=== PATIENT | female | born 1995 | race Caucasian/White ===

== ENCOUNTER 2017-07-06 20:09 | Emergency (ER) | payer MEDICAID ==
[2017-07-06 20:10] VITALS: BMI 26.4
[2017-07-06 20:30] VITALS: BP 113/74; PULSE 97; RESP 20; TEMP 98.9; O2SAT 100
--- NOTE | 2017-07-06 21:30 | C.PDOC ---
History Of Present Illness 22 y/o female presents to ED with complaints of sore throat and pain above front tooth for 1 day. Patient states she took ibuprofen last night and face swelled up but now not as swollen and is unclear if associated with nsaid use which she has used before with no problem but reports swelling to face with use of pcn. No other complaints at this time. Time Seen by Provider: 07/06/17 20:45 Chief Complaint (Nursing): Flu-like Symptoms History Per: Patient History/Exam Limitations: no limitations Onset/Duration Of Symptoms: Days Current Symptoms Are (Timing): Still Present Past Medical History Reviewed: Historical Data, Nursing Documentation, Vital Signs Vital Signs: Last Vital Signs Temp 98.9 F 07/06/17 20:27 Pulse 97 H 07/06/17 20:27 Resp 20 07/06/17 22:19 BP 113/74 07/06/17 20:27 Pulse Ox 100 07/06/17 21:41 - Medical History PMH: Asthma Surgical History: No Surg Hx, Tonsillectomy - [facility] Procedures DELIVERY OF PRODUCTS OF CONCEPTION, EXTERNAL APPROACH (12/06/15) REPAIR PERINEUM MUSCLE, OPEN APPROACH (12/06/15) Family History: States: No Known Family Hx - Social History Hx Tobacco Use: No Hx Alcohol Use: No Hx Substance Use: No - Immunization History Hx Tetanus Toxoid Vaccination: No Hx Influenza Vaccination: No Hx Pneumococcal Vaccination: No Review Of Systems Constitutional: Negative for: Fever, Chills ENT: Positive for: Mouth Pain (tooth), Throat Swelling Cardiovascular: Negative for: Chest Pain Respiratory: Negative for: Shortness of Breath Gastrointestinal: Negative for: Nausea, Vomiting Skin: Negative for: Rash Physical Exam - Physical Exam Additional Physical Exam Comments: Constitutional: No acute distress. WDWN. Head: Normocephalic. Atraumatic. Eyes: PERRL. EOMI. ENT: Moist mucous membranes. Throat- Erythema to Pharynx Neck: Supple. Cardiovascular: Regular rate and rhythm. Chest: No tenderness. Respiratory: Clear to auscultation bilaterally. GI: Soft. Nontender. Nondistended. Normoactive bowel sounds. No rebound. No guarding. Back: No CVA and no mid-line tenderness. Musculoskeletal: No tenderness or swelling of extremities. Skin: No rash. Neurologic: Alert, no focal deficit. ED Course And Treatment O2 Sat by Pulse Oximetry: 100 (RA) Pulse Ox Interpretation: Normal Medical Decision Making Medical Decision Makin22 y/o female c/o sore throat and pain above front tooth x 1 day, sts she took ibuprofen last night and her face swelled up, now not as swollen. unclear if associated with nsaid use (pt has used before with no problem, but reports swelling to face with use of pcn). pt has mild erythema to pharynx, s/p tonsillectomy years ago) with 0,5 mm tender swelling at gumline of left upper front tooth, will d/c with antibiotic and dentist tomorrow. Disposition Counseled Patient/Family Regarding: Diagnosis, Need For Followup, Rx Given - Disposition Referrals: Melissa Kinney APN [Non-Staff] - Disposition: HOME/ ROUTINE Disposition Time: 21:30 Condition: STABLE Additional Instructions: Gargle with warm salty water several times a day. take antibiotics as prescribed. Tylneol for pain and follow up with dentist tomorrow. Follow up wihth PMD in 2-3 days. Avoid nsaids (motrin, ibuprofen, aleve) until determined if you have allergy to them. Prescriptions: Clindamycin [Cleocin] 300 mg PO QID #28 cap Instructions: Dental Abscess (ED) Forms: Gen Discharge Inst Trinidadian, [employer] (Trinidadian) Print Language: KAZAKH - Clinical Impression Clinical Impression: Dental abscess - PA / DENTAL CERAMIST ASSISTANT / Resident Statement MD/DO has reviewed & agrees with the documentation as recorded. - Scribe Statement The provider has reviewed the documentation as recorded by the Charmaine Quick All medical record entries made by the Charmaine were at my direction and personally dictated by me. I have reviewed the chart and agree that the record accurately reflects my personal performance of the history, physical exam, medical decision making, and the department course for this patient. I have also personally directed, reviewed, and agree with the discharge instructions and disposition.
== END 2017-07-06 22:19 | disposition home or self-care (01) ==
LOC: C.ER 20:09
DX: K04.7 Periapical abscess without sinus (principal)

== ENCOUNTER 2017-08-22 04:30 | Emergency (ER) | payer MEDICAID ==
[2017-08-22 04:30] VITALS: BMI 26.4
[2017-08-22 04:46] VITALS: RESP 20
--- NOTE | 2017-08-22 04:59 | C.PDOC ---
History Of Present Illness 22F c/o swelling in her upper lip and face since yesterday. contrary to triage she denies any pain. she reports same sx in the past which improved with antibiotics. Time Seen by Provider: 08/22/17 04:51 Chief Complaint (Nursing): Dental Pain Past Medical History Vital Signs: Last Vital Signs Temp 98.2 F 08/22/17 04:43 Pulse 96 H 08/22/17 04:43 Resp 20 08/22/17 04:43 BP 114/72 08/22/17 04:43 Pulse Ox 99 08/22/17 05:11 - Medical History PMH: Asthma Surgical History: Tonsillectomy - [facility] Procedures DELIVERY OF PRODUCTS OF CONCEPTION, EXTERNAL APPROACH (12/06/15) REPAIR PERINEUM MUSCLE, OPEN APPROACH (12/06/15) Family History: States: Other Other Family History: nc - Social History Hx Tobacco Use: No Hx Alcohol Use: No Hx Substance Use: No - Immunization History Hx Tetanus Toxoid Vaccination: No Hx Influenza Vaccination: No Hx Pneumococcal Vaccination: No Review Of Systems Constitutional: Negative for: Fever, Weakness, Malaise Cardiovascular: Negative for: Chest Pain Respiratory: Negative for: Shortness of Breath Gastrointestinal: Negative for: Nausea, Vomiting Physical Exam - Physical Exam Appears: Well, Non-toxic, No Acute Distress Skin: Warm, Dry, Other (there is mild edema of the upper lip and maxillary region) Eye(s): bilateral: PERRL, EOMI Nose: No Epistaxis Oral Mucosa: Moist Tongue: No Swelling, No Lesions, No Erythema Lips: Swelling Gingiva: No Erythema, No Swelling, No Abscess Throat: No Erythema, No Exudate, No Drooling, No Mass, Other (uvula non- edematous and midline) Neck: Normal ROM, Supple Cardiovascular: Rhythm Regular Respiratory: No Accessory Muscle Use Neurological/Psych: Oriented x3 ED Course And Treatment O2 Sat by Pulse Oximetry: 99 Disposition - Disposition Referrals: Tyrone Kinney MD [Medical Doctor] - Disposition: HOME/ ROUTINE Disposition Time: 05:09 Condition: STABLE Additional Instructions: Please follow up with your doctor. Return to the ER for any worsening symptoms or for any other concerns. Prescriptions: Clindamycin [Cleocin] 300 mg PO QID #28 cap Instructions: Cellulitis (ED) Forms: [employer] ([place]), Gen Discharge Inst Russian Print Language: TANZANIAN - Clinical Impression Clinical Impression: Facial cellulitis
[2017-08-22 05:34] VITALS: BP 118/70; PULSE 87; TEMP 97.6; O2SAT 98
== END 2017-08-22 05:34 | disposition home or self-care (01) ==
LOC: C.ER 04:30
DX: L03.211 Cellulitis of face (principal)

== ENCOUNTER 2018-08-01 13:05 | Emergency (ER) | payer MEDICAID ==
[2018-08-01 13:06] VITALS: BMI 26.4
[2018-08-01 13:23] VITALS: O2SAT 100
[2018-08-01] MEDS ORDERED: Sodium Chloride 0.9% 1,000 ML IV ONE (13:35)
[2018-08-01 13:51] LABS: HCG,QUALITATIVE URINE POSITIVE (NEGATIVE)
[2018-08-01] MEDS ORDERED: Sodium Chloride 0.9% 1,000 ML ONE (13:52)
[2018-08-01 14:01] LABS: BASO % 0.1 % (0.0-2.0); EOS % 0.1 % (0.0-4.0); HEMOGLOBIN 12.3 g/dL (11.0-16.0); LYMPH % 6.2 % (20.0-40.0); MEAN CORPUSCULAR HEMOGLOBIN 25.7 pg (27.0-31.0); MEAN PLATELET VOLUME 7.7 fL (7.2-11.7); MONO # 1.2 K/uL (0.0-0.8); MONO % 7.2 % (0.0-10.0); NEUT # 14.3 K/uL (1.8-7.0); NEUT % 86.4 % (50.0-75.0); NRBC % 0.1 % (0.0-2.0); PLATELET COUNT 361 K/uL (130-400); RED CELL DISTRIBUTION WIDTH 17.9 % (11.5-14.5); WHITE BLOOD COUNT 16.6 K/uL (4.8-10.8)
[2018-08-01 14:03] LABS: MEAN CELL VOLUME 75.5 fL (81.0-99.0)
[2018-08-01 14:23] LABS: SQUAMOUS EPITHIAL 11 /hpf (0-5); URINE AMORPHOUS SEDIMENT RARE /ul (<OCC); URINE BACTERIA RARE (<OCC); URINE BILIRUBIN NEGATIVE (NEGATIVE); URINE CLARITY Hazy (Clear); URINE COLOR Yellow (YELLOW); URINE GLUCOSE (UA) NORMAL (Normal); URINE LEUKOCYTE ESTERASE 3+ Leu/uL (Negative); URINE PROTEIN NEGATIVE (NEGATIVE); URINE UROBILINOGEN NORMAL mg/dL (0.2-1.0)
[2018-08-01 14:24] LABS: URINE BLOOD 2+ (NEGATIVE)
[2018-08-01 14:24] LABS: ALB/GLOB RATIO 1.2 (1.0-2.1); ALBUMIN 4.2 g/dL (3.5-5.0); BLOOD UREA NITROGEN 3 mg/dL (7-17); CALCIUM 9.1 mg/dl (8.6-10.4); GFR NON-AFRICAN AMERICAN > 60
[2018-08-01 14:29] LABS: ALT/SGPT 30 U/L (9-52); AST/SGOT 31 U/L (14-36)
[2018-08-01 14:42] LABS: BANDS 1 % (0-2); LYMPHOCYTE 5 % (20-40); MONOCYTE 10 % (0-10); NEUTROPHIL 84 % (50-75); TOTAL CELLS COUNTED 100
[2018-08-01 14:43] LABS: ANISOCYTOSIS SLIGHT; PLATELET ESTIMATE NORMAL (NORMAL)
[2018-08-01 15:41] VITALS: RESP 17
--- NOTE | 2018-08-01 15:52 | US ---
Date of service: 08/01/2018 PROCEDURE: OB Pelvic Ultrasound HISTORY: pelvic pain, 8 wks, no prior LMP: 06/13/2018 COMPARISON: None available. FINDINGS: UTERUS: Gestational sac: Single intrauterine gestation. Measures 2.7 cm compatible with estimated gestational age of 7 weeks, 3 days Yolk sac: Measures 0.2 cm pole: [place]-rump length measures 1.1 cm compatible with estimated gestational age of 7 weeks, 2 days Heart rate: 152 bpm. age (Ultrasound estimated): 7 weeks, 3 days [place]-gestational hemorrhage: Trace subchorionic hemorrhage. Date of delivery (Ultrasound estimated) : 03/17/2019 Uterus measures 10.6 x 6.0 x 7.2 cm. Anteverted, CERVIX: Measures 3.2 cm. Long and closed. No cervical abnormality seen. RIGHT OVARY: Measures 3.6 x 2.2 x 3.2 cm. No mass lesion. Normal flow. LEFT OVARY: Measures 2.9 x 1.7 x 2.6 cm. No solid mass. Normal flow. FREE FLUID: None. OTHER FINDINGS: None. IMPRESSION: Single live intrauterine gestation with average ultrasound age of 7 weeks, 3 days. heart rate 152 beats per minute. Trace subchorionic hemorrhage. Cervix long and closed.
--- NOTE | 2018-08-01 15:57 | C.PDOC ---
History Of Present Illness 23 year old female presents to the ED for evaluation of vomiting with , which usually occurs in the morning. Patient also reports pelvic pain, to her left adnexal area. She has not undergone any prior ultrasounds. Patient denies fever, chills, or changes in bowel habits. Patient is . Time Seen by Provider: 08/01/18 13:31 Chief Complaint (Nursing): GI Problem History Per: Patient History/Exam Limitations: no limitations Onset/Duration Of Symptoms: Days Current Symptoms Are (Timing): Still Present Additional History Per: Patient Past Medical History Reviewed: Historical Data, Nursing Documentation, Vital Signs Vital Signs: Last Vital Signs Temp 99.4 F 08/01/18 15:40 Pulse 86 08/01/18 15:40 Resp 17 08/01/18 15:40 BP 97/64 L 08/01/18 15:40 Pulse Ox 100 08/01/18 15:40 - Medical History PMH: Asthma Surgical History: Tonsillectomy - [facility] Procedures DELIVERY OF PRODUCTS OF CONCEPTION, EXTERNAL APPROACH (12/06/15) REPAIR PERINEUM MUSCLE, OPEN APPROACH (12/06/15) Family History: States: Unknown Family Hx - Social History Hx Tobacco Use: No Hx Alcohol Use: No Hx Substance Use: No - Immunization History Hx Tetanus Toxoid Vaccination: No Hx Influenza Vaccination: No Hx Pneumococcal Vaccination: No Review Of Systems Gastrointestinal: Positive for: Vomiting Genitourinary: Positive for: Pelvic Pain, Other (left adnexal pain ) Physical Exam - Physical Exam Appears: Non-toxic, No Acute Distress Skin: Normal Color, Warm, Dry Head: Atraumatic, Normacephalic Eye(s): bilateral: Normal Inspection Oral Mucosa: Moist Neck: Supple Chest: Symmetrical, No Deformity, No Tenderness Cardiovascular: Rhythm Regular, No Murmur Respiratory: Normal Breath Sounds, No Rales, No Rhonchi, No Wheezing Gastrointestinal/Abdominal: Other (left adnexal tenderness ) Extremity: Normal ROM, Capillary Refill (less than 2 seconds ) Neurological/Psych: Other (bizarre affect ) ED Course And Treatment - Laboratory Results Result Diagrams: 08/01/18 13:50 08/01/18 13:50 O2 Sat by Pulse Oximetry: 100 (on RA) Pulse Ox Interpretation: Normal Progress Note: Bloodwork, urinalysis, Ultrasound ordered and reviewed. Pepcid IVP, Zofran IVP, Tylenol PO and IV Fluids given. Medical Decision Making Medical Decision Making: mild fever no vag d/c clear lungs normal ENT son with similar fever/body aches suspect viral syndrome in defer abx for now as no likely source Disposition Doctor Will See Patient In The: Office Counseled Patient/Family Regarding: Studies Performed, Diagnosis - Disposition Disposition: HOME/ ROUTINE Disposition Time: 16:08 Condition: GOOD Forms: [facility] (Luxembourgish) - Clinical Impression Clinical Impression: Hyperemesis gravidarum, Viral syndrome - Scribe Statement The provider has reviewed the documentation as recorded by the Scribe (Ekaterina Morse) Provider Attestation: All medical record entries made by the Scribe were at my direction and personally dictated by me. I have reviewed the chart and agree that the record a ccurately reflects my personal performance of the history, physical exam, medical decision making, and the department course for this patient. I have also personally directed, reviewed, and agree with the discharge instructions and disposition.
[2018-08-01 16:26] VITALS: BP 95/61; PULSE 87; TEMP 99
== END 2018-08-01 16:30 | disposition home or self-care (01) ==
LOC: C.ER 13:05
DX: O21.0 Mild hyperemesis gravidarum (principal); B34.9 Viral infection, unspecified; Z3A.01 Less than 8 weeks gestation of pregnancy
CPT/HCPCS: 76805; 76817; 80053; 80320; 81001; 84702; 84703; 85025; 96361; 96374; 96375; 99285; J2405; J7030

== ENCOUNTER 2018-08-17 17:13 | Emergency (ER) | payer MEDICAID ==
[2018-08-17 17:13] VITALS: BMI 26.4
[2018-08-17 17:19] VITALS: RESP 18; O2SAT 98
[2018-08-17] MEDS ORDERED: Sodium Chloride 0.9% 1,000 ML IV ONE (17:39)
--- NOTE | 2018-08-17 17:46 | C.PDOC ---
History Of Present Illness 23 year old female with PMHx of asthma who is currently 9 weeks () presents to the ED complaining of intermittent vomiting for the past 2 weeks. Denies abdominal pain, syncope, dizziness, fever, chills, urinary symptoms, vaginal bleeding. States she saw her PMD 6 days ago and was prescribed Amoxicillin, Tylenol, and meclizine. However she has not taking any medications because she does not like taking pills. Reports she has an appointment with OBGYN on 08/22. Time Seen by Provider: 08/17/18 17:20 Chief Complaint (Nursing): GI Problem History Per: Patient History/Exam Limitations: no limitations Onset/Duration Of Symptoms: Days Current Symptoms Are (Timing): Still Present Associated Symptoms: Vomiting. denies: Fever, Chills, Nausea, Diarrhea, Other Abnormal Vaginal Bleeding: No Past Medical History Reviewed: Historical Data, Nursing Documentation, Vital Signs Vital Signs: Last Vital Signs Temp 98.6 F 08/17/18 17:15 Pulse 98 H 08/17/18 17:15 Resp 18 08/17/18 17:15 BP 102/72 08/17/18 17:15 Pulse Ox 98 08/17/18 17:15 - Medical History PMH: Asthma Surgical History: Tonsillectomy - [facility] Procedures DELIVERY OF PRODUCTS OF CONCEPTION, EXTERNAL APPROACH (12/06/15) REPAIR PERINEUM MUSCLE, OPEN APPROACH (12/06/15) Family History: States: No Known Family Hx - Social History Hx Tobacco Use: No Hx Alcohol Use: No Hx Substance Use: No - Immunization History Hx Tetanus Toxoid Vaccination: No Hx Influenza Vaccination: No Hx Pneumococcal Vaccination: No Review Of Systems Except As Marked, All Systems Reviewed And Found Negative. Constitutional: Negative for: Fever, Chills Gastrointestinal: Positive for: Vomiting. Negative for: Nausea, Abdominal Pain, Diarrhea Genitourinary: Negative for: Dysuria, Hematuria, Vaginal Discharge, Vaginal Bleeding Neurological: Negative for: Dizziness Physical Exam - Physical Exam Appears: Non-toxic, No Acute Distress Skin: Warm, Dry, No Rash Head: Atraumatic, Normacephalic Eye(s): bilateral: Normal Inspection Nose: Normal Oral Mucosa: Moist Neck: Normal ROM, Supple Chest: Symmetrical Cardiovascular: Rhythm Regular, No Murmur Respiratory: No Rales, No Rhonchi, No Wheezing Gastrointestinal/Abdominal: Soft, Tenderness (Mild tenderness to epigastric region with deep palpation ) Back: No CVA Tenderness Extremity: Bilateral: Atraumatic, Normal Color And Temperature, Normal ROM Neurological/Psych: Oriented x3, Normal Speech Gait: Steady ED Course And Treatment - Laboratory Results Result Diagrams: 08/17/18 17:56 08/17/18 17:56 O2 Sat by Pulse Oximetry: 98 (RA) Pulse Ox Interpretation: Normal Medical Decision Making Medical Decision Making: Plan - Bloodwork - Zofran 4mg PO - IV fluids - UA Results -- UA results consistent with UTI. Labs unremarkable. 1830 Spoke with patient about lab and UA results. Agrees with antibiotic aneesh tment. 1900 Patient feels better after ivf, plan d/c home to f/u w/OB as previously scheduled and RTED for new, worsening or concerning symptoms. Pt verbalized understanding of d/c instructions. Disposition Counseled Patient/Family Regarding: Studies Performed, Diagnosis, Need For Followup - Disposition Disposition: HOME/ ROUTINE Disposition Time: 19:00 Condition: STABLE Additional Instructions: LINDSEY SCHUMACHER, thank you for letting us take care of you today. Your provider was Mere Wilkinson MD and you were treated for NAUSEA. The emergency medical care you received today was directed at your acute symptoms. If you were prescribed any medication, please fill it and take as directed. It may take several days for your symptoms to resolve. Return to the Emergency Department if your symptoms worsen, do not improve, or if you have any other problems. Please contact your OB on 08/22/18 as previously scheduled. Bring any paperwork you were given at discharge with you along with any medications you are taking to your follow up visit. Our treatment cannot replace ongoing medical care by a primary care provider outside of the emergency department. Thank you for allowing the [facility] team to be part of your care today. Prescriptions: Nitrofurantoin Macrocrystals [Macrobid] 100 mg PO BID #14 cap Ondansetron ODT [Zofran ODT] 4 mg PO TID PRN #15 odt PRN Reason: Nausea/Vomiting Instructions: Asymptomatic Bacteriuria, Nausea and Vomiting of Forms: [employer] (Tuvaluan), General Discharge Instructions - POA Present On Arrival: None - Clinical Impression Clinical Impression: Vomiting, UTI in - Scribe Statement The provider has reviewed the documentation as recorded by the Scribe Daisy Paneque All medical record entries made by the Scribe were at my direction and personally dictated by me. I have reviewed the chart and agree that the record accurately reflects my personal performance of the history, physical exam, medical decision making, and the department course for this patient. I have also personally directed, reviewed, and agree with the discharge instructions and disposition. Physician Patient Turnover Patient Signed Over To: Ginger Lucas Handoff Comments: anticipate d/c after ivf
[2018-08-17 18:02] LABS: BASO # 0.1 K/uL (0.0-0.2); BASO % 0.6 % (0.0-2.0); EOS # 0.1 K/uL (0.0-0.7); EOS % 0.9 % (0.0-4.0); HEMOGLOBIN 12.2 g/dL (11.0-16.0); LYMPH # 1.7 K/uL (1.0-4.3); LYMPH % 19.4 % (20.0-40.0); MEAN CELL VOLUME 76.1 fL (81.0-99.0); MEAN CORPUSCULAR HEMOGLOBIN 25.6 pg (27.0-31.0); MEAN CORPUSCULAR HGB CONC 33.7 g/dL (33.0-37.0); MEAN PLATELET VOLUME 7.5 fL (7.2-11.7); MONO # 1.3 K/uL (0.0-0.8); MONO % 14.7 % (0.0-10.0); NEUT # 5.8 K/uL (1.8-7.0); NEUT % 64.4 % (50.0-75.0); NRBC % 0.1 % (0.0-2.0); RBC 4.74 Mil/uL (3.80-5.20); RED CELL DISTRIBUTION WIDTH 18.6 % (11.5-14.5)
[2018-08-17 18:20] LABS: SQUAMOUS EPITHIAL 13 /hpf (0-5); URINE BACTERIA FEW (<OCC); URINE BILIRUBIN NEGATIVE (NEGATIVE); URINE BLOOD 2+ (NEGATIVE); URINE CLARITY Hazy (Clear); URINE COLOR Yellow (YELLOW); URINE GLUCOSE (UA) NORMAL (Normal); URINE LEUKOCYTE ESTERASE 3+ Leu/uL (Negative); URINE PROTEIN NEGATIVE (NEGATIVE)
[2018-08-17 18:28] LABS: BLOOD UREA NITROGEN 6 mg/dL (7-17); CALCIUM 8.4 mg/dl (8.6-10.4); GFR NON-AFRICAN AMERICAN > 60
[2018-08-17 19:18] VITALS: BP 119/76; PULSE 67; TEMP 98
== END 2018-08-17 19:18 | disposition home or self-care (01) ==
LOC: C.ER 17:13
DX: O23.41 Unspecified infection of urinary tract in pregnancy, first trimester (principal); O21.9 Vomiting of pregnancy, unspecified; Z3A.09 9 weeks gestation of pregnancy
CPT/HCPCS: 80048; 81001; 85025; 87086; 96374; 99284; J2405; J7030

== ENCOUNTER 2019-01-11 15:40 | Inpatient (IN) | payer MEDICAID ==
[2019-01-11 16:12] VITALS: BMI 27.7
[2019-01-11 17:00] LABS: BASO # 0.1 K/uL (0.0-0.2); BASO % 0.5 % (0.0-2.0); EOS % 0.3 % (0.0-4.0); LYMPH # 1.1 K/uL (1.0-4.3); LYMPH % 9.6 % (20.0-40.0); MEAN CORPUSCULAR HEMOGLOBIN 22.3 pg (27.0-31.0); MEAN CORPUSCULAR HGB CONC 32.6 g/dL (33.0-37.0); MEAN PLATELET VOLUME 7.6 fL (7.2-11.7); MONO # 1.5 K/uL (0.0-0.8); MONO % 13.1 % (0.0-10.0); NEUT # 8.7 K/uL (1.8-7.0); NEUT % 76.5 % (50.0-75.0); PLATELET COUNT 323 K/uL (130-400); RBC 4.06 Mil/uL (3.80-5.20); RED CELL DISTRIBUTION WIDTH 18.2 % (11.5-14.5); WHITE BLOOD COUNT 11.4 K/uL (4.8-10.8)
[2019-01-11 17:06] LABS: VENOUS BLOOD GAS BASE EXCESS -3.6 mmol/L (0.0-2.0); VENOUS BLOOD GAS PCO2 34 mmHg (40-60); VENOUS BLOOD GAS PO2 24 mm/Hg (30-55); VENOUS BLOOD PH 7.39 (7.32-7.43)
[2019-01-11 17:09] LABS: SQUAMOUS EPITHIAL 6 /hpf (0-5); URINE BACTERIA MOD (<OCC); URINE BILIRUBIN NEGATIVE (NEGATIVE); URINE BLOOD NEGATIVE (NEGATIVE); URINE CLARITY Hazy (Clear); URINE COLOR Yellow (YELLOW); URINE GLUCOSE (UA) NORMAL (Normal); URINE LEUKOCYTE ESTERASE 1+ Leu/uL (Negative); URINE PROTEIN NEGATIVE (NEGATIVE); URINE UROBILINOGEN NORMAL mg/dL (0.2-1.0)
[2019-01-11 17:10] LABS: MEAN CELL VOLUME 68.3 fL (81.0-99.0)
[2019-01-11 17:12] LABS: ALB/GLOB RATIO 1.1 (1.0-2.1); ALBUMIN 3.3 g/dL (3.5-5.0); ALT/SGPT 16 U/L (9-52); AST/SGOT 31 U/L (14-36); BLOOD UREA NITROGEN 5 mg/dL (7-17); CALCIUM 8.2 mg/dl (8.6-10.4); GFR NON-AFRICAN AMERICAN > 60
[2019-01-11] MEDS ORDERED: Sodium Chloride 0.9% 500 ML IV ONE (18:03)
[2019-01-11] MEDS ORDERED: cefTRIAXone IV 1 gm in Dextros 1 GM in Dextrose 5% In Water 50 ML IVPB SCH (18:15)
--- NOTE | 2019-01-11 18:39 | US ---
Indication: tachycardia Comparison: None available Technique: Real-time ultrasound was performed through the pelvis. Findings: There is a single living fetus in cephalic presentation. Amniotic fluid volume appears within normal limits, 12.4 cm. Anterior placenta. The placenta is not previa. There are no adnexal masses or cysts evident. Cervix length measures approximately 3.7 cm. The study was performed for the emergent evaluation of tachycardia, and the whole anatomic survey of the fetus was not performed. This should be performed on an outpatient elective basis as clinically warranted. Measurements and calculations: Fetus has a composite sonographic age of 30 weeks 6 days. This calculation is based on the biparietal diameter, head circumference, abdominal circumference, and femur length. Estimated heart rate 161 beats per min. Estimated weight 1586 g. Biophysical profile: movements 2/2 breathing 2/2 tone 2/2 Amniotic fluid 2/2 Total score impression: 05/11 Impression: Single living fetus with a composite sonographic age of 30 weeks 6 days. Estimated heart rate 161 beats per min. Biophysical profile of 8 out of 8.
--- NOTE | 2019-01-11 18:45 | US ---
Date of service: 01/11/2019 PROCEDURE: Ultrasound of the Kidneys HISTORY: Right Flank pain radiating to her RLQ, patient 30 weeks . COMPARISON: None available. TECHNIQUE: Sonogram of the kidneys. FINDINGS: RIGHT KIDNEY: Measures: 10.2 x 4.9 x 4.8 cm. Mild fullness of the collecting system. No obstructing calculus identified. LEFT KIDNEY: Measures: 9.3 x 5.1 x 4.7 cm. Mild fullness of the collecting system. No obstructing calculus identified. OTHER FINDINGS: Under distended urinary bladder. IMPRESSION: Mild fullness of the right greater than left renal collecting systems. No obstructing calculus identified. Under distended urinary bladder.
[2019-01-11] MEDS ORDERED: guaiFENesin-Codeine 100-10mg/5ml Syrup (10ml) UD PO SCH (20:00)
[2019-01-11 20:29] LABS: ANISOCYTOSIS SLIGHT; BANDS 2 % (0-2); HYPOCHROMIC SLIGHT; LYMPHOCYTE 8 % (20-40); MICROCYTOSIS SLIGHT; MONOCYTE 8 % (0-10); NEUTROPHIL 82 % (50-75); PLATELET ESTIMATE NORMAL (NORMAL); POIKILOCYTOSIS SLIGHT; TOTAL CELLS COUNTED 100
--- NOTE | 2019-01-11 21:04 | CP.PCM.CON ---
<Viji Hunter Y - Last Filed: 01/11/19 23:07> History of Present Illness - History of Present Illness History of Present Illness: cc: "I feel sick" Ms. Conti is a 23 year old at 30.2 weeks by LMP female with a PMH of asthma and sickle cell trait here today for worsening fever, chills, and R sided abdominal pain. Over the last 3 days, she has started to experience subjective fevers, chills, and a runny/stuffy nose. These are similar symptoms her 1.5 year old niece had last week. She has also been experiencing more difficulty with urination during this . She often feels like she's incompletely voiding, and has stress incontinence when she coughs or laughs. She denies burning or itching, but states that it is uncomfortable to urinate. She has a mild R sided abdominal pain that radiates to her RLQ, worst during urination. She went to see her OB yesterday and was given a 3-day Z-george of which she has only taken the first day. Her sister convinced her to come to the hospital due to her fever and persistent dry cough. There were no complications with her first . She had an increase in morning sickness during the first trimester of this , but has been otherwise uncomplicated. She has been attending near weekly appointments with her OB, Dr. Pretty. She has been keeping up with care; she has not had the flu shot this year. She was first evaluated by L&D who gave her Tylenol 650mg NE, Tylenol 650mg PO, 500mL NS bolus, and Robitussin. UA showed infection; blood and urine cultures have been sent. PMH: asthma, sickle cell trait Med: PNV, Z-george All: PCN - swelling, anaphylaxis PSxHx: tonsillectomy 2001 FamHx: mother - DM, breast CA@51, father - HTN, MGM - DM, breast CA@50s, MGF - DM, unknown CA SocHx: denies tobacco, alcohol, illicit drugs. Lives with child in apartment. 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 First uncomplicated, born term vaginally. Increased morning sickness this , otherwise uncomplicated. BOONE 6/17/19 by LMP 06/13/18. PMD: Dr. Valdez OB: Dr. Pretty [phone] Full Code Review of Systems - Constitutional Constitutional: Chills, Fatigue, Fever. absent: Weakness - EENT Eyes: absent: Blurred Vision, Change in Vision, Diplopia Ears: absent: Decreased Hearing, Tinnitus, Dizziness Nose/Mouth/Throat: Nasal Congestion, Nasal Discharge - Cardiovascular Cardiovascular: absent: Chest Pain, Palpitations - Respiratory Respiratory: Cough, Dyspnea. absent: Wheezing - Gastrointestinal Gastrointestinal: Abdominal Pain, Nausea. absent: Constipation, Diarrhea, Dysphagia, Vomiting - Genitourinary Genitourinary: Difficulty Urinating, Dysuria, Flank Pain, Urinary Incontinence, Urinary Frequency. absent: Hematuria, Bladder Distension - Musculoskeletal Musculoskeletal: absent: Joint Swelling, Muscle Weakness, Myalgias, Numbness, Tingling - Integumentary Integumentary: absent: Bleeding Lesions, Rash, Unusual Bruising - Neurological Neurological: absent: Dizziness, Numbness, Headaches, Syncope, Tingling, Weakness - Psychiatric Psychiatric: Abnormal Sleep Pattern - Endocrine Endocrine: Fatigue. absent: Flushing - Hematologic/Lymphatic Hematologic: absent: Easy Bleeding, Easy Bruising Past Patient History - Infectious Disease Hx of Infectious Diseases: None - Past Social History Smoking Status: Never Smoked Alcohol: None Drugs: Denies Home Situation {Lives}: With Family - PULMONARY Hx Asthma: Yes - HEMATOLOGICAL/ONCOLOGICAL Hx Blood Disorders: Yes - PSYCHIATRIC Hx Substance Use: No - SURGICAL HISTORY Hx Tonsillectomy: Yes - ANESTHESIA Hx Anesthesia: Yes Hx Anesthesia Reactions: No Meds Allergies/Adverse Reactions: Allergies Allergy/AdvReac Type Severity Reaction Status Date / Time Penicillins Allergy SWELLING Verified 08/01/18 13:23 terconazole Allergy RASH Verified 08/01/18 13:23 - Medications Medications: Current Medications Acetaminophen (Tylenol 650 Mg Supp) 650 mg NE Q4 PRN PRN Reason: High temp and nausea Last Admin: 01/11/19 16:50 Dose: 650 mg Acetaminophen (Tylenol 325mg Tab) 650 mg PO Q6 PRN PRN Reason: Fever >100.4 F Last Admin: 01/11/19 16:50 Dose: 650 mg Guaifenesin/Codeine Phosphate (Guaifenesin/Codeine) 10 ml PO Q4 JADYN Last Admin: 01/11/19 17:17 Dose: 10 ml Aztreonam 1 gm/ Sodium (Chloride) 100 mls @ 200 mls/hr IVPB Q8H JADYN; Protocol Physical Exam - Constitutional Appears: Well, Non-toxic, No Acute Distress - Head Exam Head Exam: ATRAUMATIC, NORMOCEPHALIC - Eye Exam Eye Exam: EOMI, Normal appearance, PERRL Pupil Exam: NORMAL ACCOMODATION - ENT Exam ENT Exam: Mucous Membranes Dry Additional comments: rhinnorhea, constantly sniffling - Neck Exam Neck exam: Positive for: Normal Inspection - Respiratory Exam Respiratory Exam: Clear to Auscultation Bilateral, NORMAL BREATHING PATTERN. absent: Accessory Muscle Use, Decreased Breath Sounds, Rales, Rhonchi, Wheezes Additional comments: constant dry cough - Cardiovascular Exam Cardiovascular Exam: Tachycardia, +S1, +S2. absent: Gallop, Rubs, Systolic Murmur - GI/Abdominal Exam GI & Abdominal Exam: Distended, Normal Bowel Sounds, Soft, Tenderness. absent: Guarding, Rebound Additional comments: distended appropriate to gestational age TTP from lateral R flank, wrapping around side to RLQ - Extremities Exam Extremities exam: Positive for: normal capillary refill, normal inspection, pedal pulses present. Negative for: pedal edema Additional comments: IV access in L UE - Back Exam Back exam: absent: CVA tenderness (L), CVA tenderness (R), paraspinal tenderness, rash noted - Neurological Exam Neurological exam: Alert, CN II-XII Intact, Oriented x3, Reflexes Normal - Psychiatric Exam Psychiatric exam: Anxious, Normal Mood - Skin Skin Exam: Dry, Intact, Normal Color, Warm Results - Vital Signs Recent Vital Signs: Last Vital Signs Temp 101.3 F H 01/11/19 16:50 Pulse Resp BP Pulse Ox - Labs Result Diagrams: 01/11/19 16:55 01/11/19 16:55 Labs: Laboratory Results - last 24 hr 01/11/19 01/11/19 01/11/19 16:55 16:55 16:55 WBC 11.4 H RBC 4.06 Hgb 9.0 L D Hct 27.7 L MCV 68.3 L D MCH 22.3 L MCHC 32.6 L RDW 18.2 H Plt Count 323 MPV 7.6 Neut % (Auto) 76.5 H Lymph % (Auto) 9.6 L Hendricks % (Auto) 13.1 H Eos % (Auto) 0.3 Baso % (Auto) 0.5 Neut # (Auto) 8.7 H Lymph # (Auto) 1.1 Hendricks # (Auto) 1.5 H Eos # (Auto) 0.0 Baso # (Auto) 0.1 Neutrophils % (Manual) 82 H Band Neutrophils % 2 Lymphocytes % (Manual) 8 L Monocytes % (Manual) 8 Platelet Estimate Normal Hypochromasia (manual) Slight Poikilocytosis (manual Slight Anisocytosis (manual) Slight Microcytosis (manual) Slight pO2 VBG pH VBG pCO2 VBG HCO3 VBG Total CO2 VBG O2 Sat (Calc) VBG Base Excess VBG Potassium Glucose Lactate FiO2 Sodium 130 L Potassium 3.8 Chloride 101 Carbon Dioxide 21 L Anion Gap 12 BUN 5 L Creatinine 0.5 L Est GFR ( Amer) > 60 Est GFR (Non-Af Amer) > 60 Random Glucose 71 Calcium 8.2 L Phosphorus 3.1 Magnesium 1.4 L Total Bilirubin 0.4 AST 31 ALT 16 Alkaline Phosphatase 102 Total Protein 6.4 Albumin 3.3 L D Globulin 3.1 Albumin/Globulin Ratio 1.1 Venous Blood Potassium Urine Color Yellow Urine Clarity Hazy Urine pH 6.0 Ur Specific Elliston 1.011 Urine Protein Negative Urine Glucose (UA) Normal Urine Ketones 1+ H Urine Blood Negative Urine Nitrate Negative Urine Bilirubin Negative Urine Urobilinogen Normal Ur Leukocyte Esterase 1+ H Urine WBC (Auto) 7 H Urine RBC (Auto) 5 H Ur Squamous Epith Cells 6 H Urine Bacteria Mod H 01/11/19 17:00 WBC RBC Hgb Hct MCV MCH MCHC RDW Plt Count MPV Neut % (Auto) Lymph % (Auto) Hendricks % (Auto) Eos % (Auto) Baso % (Auto) Neut # (Auto) Lymph # (Auto) Hendricks # (Auto) Eos # (Auto) Baso # (Auto) Neutrophils % (Manual) Band Neutrophils % Lymphocytes % (Manual) Monocytes % (Manual) Platelet Estimate Hypochromasia (manual) Poikilocytosis (manual Anisocytosis (manual) Microcytosis (manual) pO2 24 L VBG pH 7.39 VBG pCO2 34 L VBG HCO3 20.6 VBG Total CO2 21.6 L VBG O2 Sat (Calc) 43.3 VBG Base Excess -3.6 L VBG Potassium 3.1 L Glucose 65 Lactate 1.7 FiO2 21.0 Sodium 136.0 Potassium Chloride 107.0 Carbon Dioxide Anion Gap BUN Creatinine Est GFR ( Amer) Est GFR (Non-Af Amer) Random Glucose Calcium Phosphorus Magnesium Total Bilirubin AST ALT Alkaline Phosphatase Total Protein Albumin Globulin Albumin/Globulin Ratio Venous Blood Potassium 3.1 L Urine Color Urine Clarity Urine pH Ur Specific [place] Urine Protein Urine Glucose (UA) Urine Ketones Urine Blood Urine Nitrate Urine Bilirubin Urine Urobilinogen Ur Leukocyte Esterase Urine WBC (Auto) Urine RBC (Auto) Ur Squamous Epith Cells Urine Bacteria - EKG Data EKG Interpreted by: Myself EKG shows normal: Sinus rhythm Rate: Tachycardia Assessment & Plan - Assessment and Plan (Free Text) Assessment: 23yo at 30.2 weeks PMH asthma, sickle cell trait admitted for R flank pain r/o pyelonephritis. Plan: R flank pain with fever possible Pyelonephritis Renal US (01/11): mild fullness of the R>L renal collecting systems. No obstructing calculus identified Tmax 101.3. Given Tylenol 650mg PO and 650mg NE. 500mL bolus of NS also given in OB. - Aztreonam 1gm IVPB q8 (started 01/11) - Tylenol 650mg PO q6 prn - maintenance hydration: LR@100 - f/u blood Cx - f/u urine Cx - ID consulted: Dr. Carreon - recs appreciated Patient is at 30.2 by LMP and 30.6 by third trimester US BPP (01/11): 8/8 - hold PNV in lieu of infection - call OB Dr. Pretty for records - monitor BID x 20-30 min Asthma SOB/Cough patient was given Guaifenesin/Codeine in L&D EKG showed sinus tachy @ 98 with no STTW changes - Robitussin 100mg po q4 prn - Albuterol HFA 1 puff INH rQ6 prn - f/u influenza PPx - DVT: SCDs - Diet: Reg diet - IVF: LR@100 d/w Dr. Kathleen Hunter PGY-1 - Date & Time Date: 01/11/19 Time: 20:30 <Car Wang - Last Filed: 01/12/19 05:32> Meds - Medications Medications: Current Medications Acetaminophen (Tylenol 325mg Tab) 650 mg PO Q6 PRN PRN Reason: Fever >100.4 F Last Admin: 01/11/19 16:50 Dose: 650 mg Albuterol (Ventolin Hfa 90 Mcg/Actuation (8 G)) 1 puff INH RQ6 PRN PRN Reason: Shortness of Breath Guaifenesin (Robitussin) 100 mg PO Q4H PRN PRN Reason: Cough Last Admin: 01/11/19 22:05 Dose: 100 mg Aztreonam 1 gm/ Sodium (Chloride) 100 mls @ 200 mls/hr IVPB Q8H JADYN; Protocol Last Admin: 01/12/19 02:45 Dose: 200 mls/hr Lactated Ringer's (Lactated Ringer's) 1,000 mls @ 100 mls/hr IV .Q10H JADYN Last Admin: 01/11/19 22:04 Dose: 100 mls/hr Results - Vital Signs Recent Vital Signs: Last Vital Signs Temp 99.7 F H 01/12/19 04:00 Pulse 110 H 01/12/19 04:46 Resp 20 01/12/19 04:00 BP 105/60 01/12/19 04:00 Pulse Ox 96 01/12/19 04:00 - Labs Result Diagrams: 01/11/19 16:55 01/11/19 16:55 Labs: Laboratory Results - last 24 hr 01/11/19 01/11/19 01/11/19 16:55 16:55 16:55 WBC 11.4 H RBC 4.06 Hgb 9.0 L D Hct 27.7 L MCV 68.3 L D MCH 22.3 L MCHC 32.6 L RDW 18.2 H Plt Count 323 MPV 7.6 Neut % (Auto) 76.5 H Lymph % (Auto) 9.6 L Hendricks % (Auto) 13.1 H Eos % (Auto) 0.3 Baso % (Auto) 0.5 Neut # (Auto) 8.7 H Lymph # (Auto) 1.1 Hendricks # (Auto) 1.5 H Eos # (Auto) 0.0 Baso # (Auto) 0.1 Neutrophils % (Manual) 82 H Band Neutrophils % 2 Lymphocytes % (Manual) 8 L Monocytes % (Manual) 8 Platelet Estimate Normal Hypochromasia (manual) Slight Poikilocytosis (manual Slight Anisocytosis (manual) Slight Microcytosis (manual) Slight pO2 VBG pH VBG pCO2 VBG HCO3 VBG Total CO2 VBG O2 Sat (Calc) VBG Base Excess VBG Potassium Glucose Lactate FiO2 Sodium 130 L Potassium 3.8 Chloride 101 Carbon Dioxide 21 L Anion Gap 12 BUN 5 L Creatinine 0.5 L Est GFR ( Amer) > 60 Est GFR (Non-Af Amer) > 60 Random Glucose 71 Calcium 8.2 L Phosphorus 3.1 Magnesium 1.4 L Total Bilirubin 0.4 AST 31 ALT 16 Alkaline Phosphatase 102 Total Protein 6.4 Albumin 3.3 L D Globulin 3.1 Albumin/Globulin Ratio 1.1 Venous Blood Potassium Urine Color Yellow Urine Clarity Hazy Urine pH 6.0 Ur Specific Ell[place] 1.011 Urine Protein Negative Urine Glucose (UA) Normal Urine Ketones 1+ H Urine Blood Negative Urine Nitrate Negative Urine Bilirubin Negative Urine Urobilinogen Normal Ur Leukocyte Esterase 1+ H Urine WBC (Auto) 7 H Urine RBC (Auto) 5 H Ur Squamous Epith Cells 6 H Urine Bacteria Mod H 01/11/19 17:00 WBC RBC Hgb Hct MCV MCH MCHC RDW Plt Count MPV Neut % (Auto) Lymph % (Auto) Hendricks % (Auto) Eos % (Auto) Baso % (Auto) Neut # (Auto) Lymph # (Auto) Hendricks # (Auto) Eos # (Auto) Baso # (Auto) Neutrophils % (Manual) Band Neutrophils % Lymphocytes % (Manual) Monocytes % (Manual) Platelet Estimate Hypochromasia (manual) Poikilocytosis (manual Anisocytosis (manual) Microcytosis (manual) pO2 24 L VBG pH 7.39 VBG pCO2 34 L VBG HCO3 20.6 VBG Total CO2 21.6 L VBG O2 Sat (Calc) 43.3 VBG Base Excess -3.6 L VBG Potassium 3.1 L Glucose 65 Lactate 1.7 FiO2 21.0 Sodium 136.0 Potassium Chloride 107.0 Carbon Dioxide Anion Gap BUN Creatinine Est GFR ( Amer) Est GFR (Non-Af Amer) Random Glucose Calcium Phosphorus Magnesium Total Bilirubin AST ALT Alkaline Phosphatase Total Protein Albumin Globulin Albumin/Globulin Ratio Venous Blood Potassium 3.1 L Urine Color Urine Clarity Urine pH Ur Specific [place] Urine Protein Urine Glucose (UA) Urine Ketones Urine Blood Urine Nitrate Urine Bilirubin Urine Urobilinogen Ur Leukocyte Esterase Urine WBC (Auto) Urine RBC (Auto) Ur Squamous Epith Cells Urine Bacteria Attending/Attestation - Attestation I have personally seen and examined this patient.: Yes I have fully participated in the care of the patient.: Yes I have reviewed all pertinent clinical information: Yes Notes (Text): 01/12/19 05:27 Medical attending: Patient was seen and examined by me with the medical delivery technician. I reviewed the above note by the medical delivery technician and agree with the above. I spoke with the resident for [employer]NAGER and also with the [employer]BI[employer] MANAGER attending as well. Infectious disease consult has advised the patient is being moved to telemetry floor for further monitoring. Patient has R flank and R side lower quadrant abdominal pain. A UA suggest UTI and she has reported fevers as well. Currently at least 30 weeks , an ultrasound was done and was stable infant. The ultrasound of the kidney did not show obstruction. There is a severe PCN allergy according to the patient, she will be started on Aztreonam which is category B. A Urine culture and blood culture have been aquired. She will be on IVF as well. Monitor flu study, CBC. Car Wang
[2019-01-11] MEDS: Lactated Ringer's 1,000 ML IV SCH (22:04)
[2019-01-11] MEDS: guaiFENesin 100 mg/5 ml Syrup UD PO PRN (22:05)
[2019-01-11] MEDS: Aztreonam 1 GM in Sodium Chloride 0.9% 100 ML IVPB SCH (22:06)
[2019-01-12] MEDS: Aztreonam 1 GM in Sodium Chloride 0.9% 100 ML IVPB SCH ×3 (02:45→19:01)
[2019-01-12] MEDS: guaiFENesin 100 mg/5 ml Syrup UD PO PRN ×3 (06:40→21:23)
[2019-01-12 07:41] LABS: BASO % 0.4 % (0.0-2.0); EOS % 0.5 % (0.0-4.0); LYMPH # 1.2 K/uL (1.0-4.3); LYMPH % 13.4 % (20.0-40.0); MEAN CELL VOLUME 68.1 fL (81.0-99.0); MEAN CORPUSCULAR HEMOGLOBIN 22.9 pg (27.0-31.0); MEAN CORPUSCULAR HGB CONC 33.5 g/dL (33.0-37.0); MEAN PLATELET VOLUME 7.5 fL (7.2-11.7); MONO % 11.3 % (0.0-10.0); NEUT # 6.8 K/uL (1.8-7.0); NEUT % 74.4 % (50.0-75.0); NRBC % 0.1 % (0.0-2.0); RBC 3.93 Mil/uL (3.80-5.20); RED CELL DISTRIBUTION WIDTH 17.8 % (11.5-14.5); WHITE BLOOD COUNT 9.2 K/uL (4.8-10.8)
[2019-01-12 07:57] LABS: ALB/GLOB RATIO 1.1 (1.0-2.1); ALT/SGPT 8 U/L (9-52); AST/SGOT 27 U/L (14-36); BLOOD UREA NITROGEN 4 mg/dL (7-17); CALCIUM 7.9 mg/dl (8.6-10.4); GFR NON-AFRICAN AMERICAN > 60
[2019-01-12] MEDS: Lactated Ringer's 1,000 ML IV SCH (11:54)
--- NOTE | 2019-01-12 12:34 | CARD ---
APPROVED REPORT Date of service: 01/11/2019 EKG Measurement Heart [id number] <Conclusion> Normal sinus rhythm Artifact Abnormal ECG
--- NOTE | 2019-01-12 13:32 | CP.PCM.PN ---
<Kervin Funes - Last Filed: 01/12/19 18:07> Subjective - Date & Time of Evaluation Date of Evaluation: 01/12/19 Time of Evaluation: 09:00 - Subjective Subjective: PGY-[address] Erickson service Patient is seen and examined at bedside. States her right lower quadrant pain and R flank pain is only present when moving or when feeling baby move. States has right side pain when forcing to urinate, otherwise patient denies burning when urinating. Patient states cough and shortness of breath has improved, but has light headache and throat pain when coughing. denies fever, chills, chest pain, n/v/d/c. Objective - Vital Signs/Intake and Output Vital Signs (last 24 hours): Temp Pulse Resp BP Pulse Ox 99.1 F 111 H 20 107/66 9 L 01/12/19 07:00 01/12/19 07:20 01/12/19 07:00 01/12/19 07:00 01/12/19 07:00 Intake and Output: 01/12/19 01/12/19 06:59 18:59 Intake Total 1250 Balance 1250 - Medications Medications: Current Medications Acetaminophen (Tylenol 325mg Tab) 650 mg PO Q6 PRN PRN Reason: Fever >100.4 F Last Admin: 01/11/19 16:50 Dose: 650 mg Albuterol (Ventolin Hfa 90 Mcg/Actuation (8 G)) 1 puff INH RQ6 PRN PRN Reason: Shortness of Breath Guaifenesin (Robitussin) 100 mg PO Q4H PRN PRN Reason: Cough Last Admin: 01/12/19 12:06 Dose: 100 mg Aztreonam 1 gm/ Sodium (Chloride) 100 mls @ 200 mls/hr IVPB Q8H JADYN; Protocol Last Admin: 01/12/19 11:57 Dose: 200 mls/hr Lactated Ringer's (Lactated Ringer's) 1,000 mls @ 100 mls/hr IV .Q10H JADYN Last Admin: 01/12/19 11:54 Dose: 100 mls/hr - Labs Labs: 01/12/19 07:28 01/12/19 07:28 - Constitutional Appears: Non-toxic, No Acute Distress - Head Exam Head Exam: ATRAUMATIC, NORMOCEPHALIC - Eye Exam Eye Exam: EOMI - ENT Exam ENT Exam: Mucous Membranes Moist - Neck Exam Neck Exam: Full ROM - Respiratory Exam Respiratory Exam: Clear to Ausculation Bilateral, NORMAL BREATHING PATTERN. absent: Rales, Rhonchi, Wheezes - Cardiovascular Exam Cardiovascular Exam: REGULAR RHYTHM - GI/Abdominal Exam GI & Abdominal Exam: Soft, Normal Bowel Sounds. absent: Tenderness - Extremities Exam Extremities Exam: Full ROM, Normal Inspection. absent: Pedal Edema, Tenderness - Back Exam Back Exam: NORMAL INSPECTION. absent: CVA tenderness (L), CVA tenderness (R) - Neurological Exam Neurological Exam: Alert, Awake, Oriented x3 - Psychiatric Exam Psychiatric exam: Normal Affect, Normal Mood - Skin Skin Exam: Dry, Intact, Normal Color, Warm Assessment and Plan - Assessment and Plan (Free Text) Assessment: 23yo at 30.2 weeks PMH asthma, admitted for R flank pain r/o pyelonephritis vs UTI Plan: R flank pain positive U/A possible Pyelonephritis vs UTI Renal US (01/11): mild fullness of the R>L renal collecting systems. No obstructing calculus identified U/a - positive LE +1, WBC, urine bacteria moderate - afebrile, WBC downtrending from 11.4 --> 9.2 - continue Aztreonam 1gm IVPB q8 (started 01/11) - Tylenol 650mg PO q6 prn - d/c hydration, continue po hydration - f/u blood Cx and ucx/sensitivities - ID consulted: Dr. Carreon - recs appreciated hypokalemia - Kdur 20meq PO x 1 - follow up am labs - replete as needed Patient is at 30.2 by LMP and 30.6 by third trimester US OB consult - Dr Javier - continue monitor BID x 20-30 min - start vitamins, folic acid, iron Asthma SOB/Cough - Robitussin 100mg po q4 prn - Albuterol HFA 1 puff INH rQ6 prn PPx - DVT: SCDs - Diet: Reg diet Plan discussed with Dr Dre Funes, PGY-1 <Stephane Erickson - Last Filed: 01/12/19 18:42> Objective - Vital Signs/Intake and Output Vital Signs (last 24 hours): Temp Pulse Resp BP Pulse Ox 99.4 F 117 H 20 102/65 98 01/12/19 15:42 01/12/19 15:42 01/12/19 15:42 01/12/19 15:42 01/12/19 15:42 Intake and Output: 01/12/19 01/12/19 06:59 18:59 Intake Total 1250 1200 Balance 1250 1200 - Medications Medications: Current Medications Acetaminophen (Tylenol 325mg Tab) 650 mg PO Q6 PRN PRN Reason: Fever >100.4 F Last Admin: 01/12/19 17:35 Dose: 650 mg Albuterol (Ventolin Hfa 90 Mcg/Actuation (8 G)) 1 puff INH RQ6 PRN PRN Reason: Shortness of Breath Guaifenesin (Robitussin) 100 mg PO Q4H PRN PRN Reason: Cough Last Admin: 01/12/19 12:06 Dose: 100 mg Aztreonam 1 gm/ Sodium (Chloride) 100 mls @ 200 mls/hr IVPB Q8H JADYN; Protocol Last Admin: 01/12/19 11:57 Dose: 200 mls/hr Multivit/Folic Acid/Iron () 1 tab PO DAILY JADYN Last Admin: 01/12/19 17:31 Dose: 1 tab - Labs Labs: 01/12/19 07:28 01/12/19 07:28 Attending/Attestation - Attestation I have personally seen and examined this patient.: Yes I have fully participated in the care of the patient.: Yes I have reviewed all pertinent clinical information, including history, physical exam and plan: Yes Notes (Text): seen and examined . Denies fever,no chills,no abdominal tenderness Continue Aztreonam as per Dr carreon follow urine culture
[2019-01-12] MEDS ORDERED: Potassium Chloride 20 mEq ER Tab PO ONE (14:00)
[2019-01-12] MEDS ORDERED: Albuterol 0.042% Inhal Sol (1.25 mg/3 mL) UD INH ONE (14:15)
--- NOTE | 2019-01-12 15:27 | CP.PCM.PN ---
<Osmel Morse - Last Filed: 01/12/19 15:45> Subjective - Date & Time of Evaluation Date of Evaluation: 01/12/19 Time of Evaluation: 15:27 - Subjective Subjective: Osmel Morse DO PGY1 - Internal Medicine Battery Builder - OBGYN Progress Note for Dr. Javier Pt. seen and evaluated at bedside this afternoon no acute events reported ove rnight; Does complain of belt like abdominal pain which improves w/ rest. Patient afebrile since yesterday; reports feeling better. Still with complaints of cough, sob, runny nose, and headache. Denies any dysuria, hematuria, vaginal bleeding, contractions, or broken water. Objective - Vital Signs/Intake and Output Vital Signs (last 24 hours): Temp Pulse Resp BP Pulse Ox 99.1 F 111 H 20 107/66 9 L 01/12/19 07:00 01/12/19 07:20 01/12/19 07:00 01/12/19 07:00 01/12/19 07:00 Intake and Output: 01/12/19 01/12/19 06:59 18:59 Intake Total 1250 1200 Balance 1250 1200 - Medications Medications: Current Medications Acetaminophen (Tylenol 325mg Tab) 650 mg PO Q6 PRN PRN Reason: Fever >100.4 F Last Admin: 01/11/19 16:50 Dose: 650 mg Albuterol (Ventolin Hfa 90 Mcg/Actuation (8 G)) 1 puff INH RQ6 PRN PRN Reason: Shortness of Breath Guaifenesin (Robitussin) 100 mg PO Q4H PRN PRN Reason: Cough Last Admin: 01/12/19 12:06 Dose: 100 mg Aztreonam 1 gm/ Sodium (Chloride) 100 mls @ 200 mls/hr IVPB Q8H JADYN; Protocol Last Admin: 01/12/19 11:57 Dose: 200 mls/hr - Labs Labs: 01/12/19 07:28 01/12/19 07:28 - Constitutional Appears: Well, Non-toxic, No Acute Distress - Head Exam Head Exam: ATRAUMATIC, NORMOCEPHALIC - Eye Exam Eye Exam: EOMI, Normal appearance, PERRL - Respiratory Exam Respiratory Exam: Wheezes (minimal), NORMAL BREATHING PATTERN - Cardiovascular Exam Cardiovascular Exam: RRR. absent: Murmur - GI/Abdominal Exam GI & Abdominal Exam: Soft. absent: Tenderness - Extremities Exam Extremities Exam: Normal Capillary Refill - Neurological Exam Neurological Exam: Alert, Awake, CN II-XII Intact, Oriented x3 - Psychiatric Exam Psychiatric exam: Normal Affect, Normal Mood - Skin Skin Exam: Dry, Intact, Warm Assessment and Plan - Assessment and Plan (Free Text) Assessment: 23 yo female with an IUP at 32.2 weeks admitted for presumed pyelonephritis and IV ABX on 01/11. Plan: Pyelonephritis Management as per Primary team and ID IV Abx as per ID at 32 Weeks Continue NST Q12 Start vitamins, folic acid, iron Hx Asthma w/ minimal wheezes + cough Albuterol nebs one time given today due to symptoms during exam; If refractory will defer to primary team for management c/w albuterol inhaler prn as per primary c/w antitussives as per primary Patient was seen, examined, and discussed w/ attending Dr. Roger Morse DO PGY1 - Internal Medicine Battery Builder <Aminata Javier - Last Filed: 01/12/19 16:49> Objective - Vital Signs/Intake and Output Vital Signs (last 24 hours): Temp Pulse Resp BP Pulse Ox 99.1 F 111 H 20 107/66 9 L 01/12/19 07:00 01/12/19 07:20 01/12/19 07:00 01/12/19 07:00 01/12/19 07:00 Intake and Output: 01/12/19 01/12/19 06:59 18:59 Intake Total 1250 1200 Balance 1250 1200 - Medications Medications: Current Medications Acetaminophen (Tylenol 325mg Tab) 650 mg PO Q6 PRN PRN Reason: Fever >100.4 F Last Admin: 01/11/19 16:50 Dose: 650 mg Albuterol (Ventolin Hfa 90 Mcg/Actuation (8 G)) 1 puff INH RQ6 PRN PRN Reason: Shortness of Breath Guaifenesin (Robitussin) 100 mg PO Q4H PRN PRN Reason: Cough Last Admin: 01/12/19 12:06 Dose: 100 mg Aztreonam 1 gm/ Sodium (Chloride) 100 mls @ 200 mls/hr IVPB Q8H JADYN; Protocol Last Admin: 01/12/19 11:57 Dose: 200 mls/hr Multivit/Folic Acid/Iron () 1 tab PO DAILY JADYN - Labs Labs: 01/12/19 07:28 01/12/19 07:28 Attending/Attestation - Attestation I have personally seen and examined this patient.: Yes I have fully participated in the care of the patient.: Yes I have reviewed all pertinent clinical information, including history, physical exam and plan: Yes Notes (Text): 01/12/19 16:47 Patient see, evaluated and examined by me with the resident. I agree with the documentation as above. Of note: NST interpreted by me - reactive. 01/12/19 16:48 - will continue to follow with you.
[2019-01-12] MEDS: Prenatal Multivit/Folic Acid/Iron Tab PO SCH (17:31)
--- NOTE | 2019-01-12 19:53 | CP.PCM.CON ---
History of Present Illness - History of Present Illness History of Present Illness: SEEN ON ROUNDS FOR COMPLICATED UTI DURING WITH PCN ALLERGY Review of Systems - Review of Systems All systems: reviewed and no additional remarkable complaints except Past Patient History - Infectious Disease Hx of Infectious Diseases: None - Past Social History Smoking Status: Never Smoked Alcohol: None Drugs: Denies Home Situation {Lives}: With Family - PULMONARY Hx Asthma: Yes - HEMATOLOGICAL/ONCOLOGICAL Hx Blood Disorders: Yes - PSYCHIATRIC Hx Substance Use: No - SURGICAL HISTORY Hx Tonsillectomy: Yes - ANESTHESIA Hx Anesthesia: Yes Hx Anesthesia Reactions: No Meds Home Medications: Home Medication List Medication Instructions Recorded Confirmed Type Albuterol HFA [Ventolin HFA 90 1 puff IH Q6H #1 inhaler 01/13/19 Rx mcg/actuation (8 g)] Albuterol HFA [Ventolin HFA 90 1 puff INH RQ6 PRN inhaler 01/13/19 Rx mcg/actuation (8 g)] Nitrofurantoin Macrocrystals 100 mg PO BID #14 cap 01/13/19 Rx [Macrobid] Multivit/Folic Acid/I 1 tab PO DAILY tab 01/13/19 Rx [] Allergies/Adverse Reactions: Allergies Allergy/AdvReac Type Severity Reaction Status Date / Time Penicillins Allergy SWELLING Verified 08/01/18 13:23 terconazole Allergy RASH Verified 08/01/18 13:23 - Medications Medications: Current Medications Acetaminophen (Tylenol 325mg Tab) 650 mg PO Q6 PRN PRN Reason: Fever >100.4 F Last Admin: 01/12/19 17:35 Dose: 650 mg Albuterol (Ventolin Hfa 90 Mcg/Actuation (8 G)) 1 puff INH RQ6 PRN PRN Reason: Shortness of Breath Guaifenesin (Robitussin) 100 mg PO Q4H PRN PRN Reason: Cough Last Admin: 01/12/19 12:06 Dose: 100 mg Aztreonam 1 gm/ Sodium (Chloride) 100 mls @ 200 mls/hr IVPB Q8H JADYN; Protocol Last Admin: 01/12/19 19:01 Dose: 200 mls/hr Multivit/Folic Acid/Iron () 1 tab PO DAILY JADYN Last Admin: 01/12/19 17:31 Dose: 1 tab Physical Exam - Constitutional Appears: Well - Head Exam Head Exam: ATRAUMATIC, NORMAL INSPECTION, NORMOCEPHALIC - Eye Exam Eye Exam: EOMI, Normal appearance, PERRL Pupil Exam: NORMAL ACCOMODATION, PERRL - ENT Exam ENT Exam: Mucous Membranes Moist, Normal Exam - Neck Exam Neck exam: Positive for: Normal Inspection - Respiratory Exam Respiratory Exam: Clear to Auscultation Bilateral, NORMAL BREATHING PATTERN - Cardiovascular Exam Cardiovascular Exam: REGULAR RHYTHM - GI/Abdominal Exam GI & Abdominal Exam: Normal Bowel Sounds, Soft. absent: Tenderness - Rectal Exam Rectal Exam: Deferred - Exam Exam: NORMAL INSPECTION - Extremities Exam Extremities exam: Positive for: normal inspection - Back Exam Back exam: NORMAL INSPECTION - Neurological Exam Neurological exam: Alert, CN II-XII Intact, Normal Gait, Oriented x3, Reflexes Normal - Psychiatric Exam Psychiatric exam: Normal Affect, Normal Mood - Skin Skin Exam: Dry, Intact, Normal Color, Warm Results - Vital Signs Recent Vital Signs: Last Vital Signs Temp 98.1 F 01/12/19 19:40 Pulse 99 H 01/12/19 19:40 Resp 20 01/12/19 19:40 BP 95/60 L 01/12/19 19:40 Pulse Ox 96 01/12/19 19:40 - Labs Result Diagrams: 01/13/19 07:31 01/13/19 07:31 Labs: Laboratory Results - last 24 hr 01/11/19 01/12/19 01/12/19 16:55 07:28 07:28 WBC 9.2 RBC 3.93 Hgb 9.0 L Hct 26.7 L MCV 68.1 L MCH 22.9 L MCHC 33.5 RDW 17.8 H Plt Count 316 MPV 7.5 Neut % (Auto) 74.4 Lymph % (Auto) 13.4 L [place] % (Auto) 11.3 H Eos % (Auto) 0.5 Baso % (Auto) 0.4 Neut # (Auto) 6.8 Lymph # (Auto) 1.2 [place] # (Auto) 1.0 H Eos # (Auto) 0.0 Baso # (Auto) 0.0 Neutrophils % (Manual) 82 H Band Neutrophils % 2 Lymphocytes % (Manual) 8 L Monocytes % (Manual) 8 Platelet Estimate Normal Hypochromasia (manual) Slight Poikilocytosis (manual Slight Anisocytosis (manual) Slight Microcytosis (manual) Slight Sodium 132 Potassium 3.4 L Chloride 103 Carbon Dioxide 24 Anion Gap 9 L BUN 4 L Creatinine 0.4 L Est GFR ( Amer) > 60 Est GFR (Non-Af Amer) > 60 Random Glucose 80 Calcium 7.9 L Phosphorus 3.1 Magnesium 1.4 L Total Bilirubin 0.3 AST 27 ALT 8 L D Alkaline Phosphatase 101 Total Protein 5.8 L Albumin 3.0 L Globulin 2.8 Albumin/Globulin Ratio 1.1 Assessment & Plan (1) UTI (urinary tract infection) Status: Acute (2) Viral syndrome Status: Acute - Assessment and Plan (Free Text) Assessment: d/c on PO antibiotics if all cultures negative follow with [employer]
[2019-01-13] MEDS: Aztreonam 1 GM in Sodium Chloride 0.9% 100 ML IVPB SCH (04:00)
[2019-01-13] MEDS: guaiFENesin 100 mg/5 ml Syrup UD PO PRN (05:05)
[2019-01-13] MEDS: Albuterol HFA 90 mcg/actuation (8 g) INH PRN ×2 (05:29→13:50)
[2019-01-13] MEDS ORDERED: Potassium Chloride 20 mEq ER Tab PO ONE (07:18)
--- NOTE | 2019-01-13 07:30 | CP.PCM.PN ---
Objective - Vital Signs/Intake and Output Vital Signs (last 24 hours): Temp Pulse Resp BP Pulse Ox 98.2 F 93 H 20 98/65 L 96 01/13/19 04:17 01/13/19 04:17 01/13/19 04:17 01/13/19 04:17 01/13/19 04:17 Intake and Output: 01/13/19 01/13/19 06:59 18:59 Intake Total 750 Balance 750 - Medications Medications: Current Medications Acetaminophen (Tylenol 325mg Tab) 650 mg PO Q6 PRN PRN Reason: Fever >100.4 F Last Admin: 01/12/19 17:35 Dose: 650 mg Albuterol (Ventolin Hfa 90 Mcg/Actuation (8 G)) 1 puff INH RQ6 PRN PRN Reason: Shortness of Breath Last Admin: 01/13/19 05:29 Dose: 1 puff Guaifenesin (Robitussin) 100 mg PO Q4H PRN PRN Reason: Cough Last Admin: 01/13/19 05:05 Dose: 100 mg Aztreonam 1 gm/ Sodium (Chloride) 100 mls @ 200 mls/hr IVPB Q8H JADYN; Protocol Last Admin: 01/13/19 04:00 Dose: 200 mls/hr Multivit/Folic Acid/Iron () 1 tab PO DAILY JADYN Last Admin: 01/12/19 17:31 Dose: 1 tab - Labs Labs: 01/12/19 07:28 01/12/19 07:28
[2019-01-13 07:42] LABS: BASO % 0.4 % (0.0-2.0); EOS # 0.2 K/uL (0.0-0.7); EOS % 1.7 % (0.0-4.0); LYMPH # 1.5 K/uL (1.0-4.3); LYMPH % 15.8 % (20.0-40.0); MEAN CELL VOLUME 68.3 fL (81.0-99.0); MEAN CORPUSCULAR HEMOGLOBIN 22.9 pg (27.0-31.0); MEAN CORPUSCULAR HGB CONC 33.5 g/dL (33.0-37.0); MEAN PLATELET VOLUME 7.5 fL (7.2-11.7); MONO # 0.9 K/uL (0.0-0.8); MONO % 9.7 % (0.0-10.0); NEUT # 6.9 K/uL (1.8-7.0); NEUT % 72.4 % (50.0-75.0); RBC 3.95 Mil/uL (3.80-5.20); RED CELL DISTRIBUTION WIDTH 17.6 % (11.5-14.5); WHITE BLOOD COUNT 9.5 K/uL (4.8-10.8)
[2019-01-13 07:58] LABS: ALB/GLOB RATIO 1.1 (1.0-2.1); ALBUMIN 2.9 g/dL (3.5-5.0); ALT/SGPT 11 U/L (9-52); AST/SGOT 38 U/L (14-36); BLOOD UREA NITROGEN 3 mg/dL (7-17); CALCIUM 7.9 mg/dl (8.6-10.4); GFR NON-AFRICAN AMERICAN > 60
[2019-01-13 08:14] VITALS: O2SAT 95
[2019-01-13 08:16] VITALS: BP 100/58
[2019-01-13] MEDS: Prenatal Multivit/Folic Acid/Iron Tab PO SCH (09:24)
--- NOTE | 2019-01-13 10:46 | CP.PCM.PN ---
Subjective - Date & Time of Evaluation Date of Evaluation: 01/13/19 Time of Evaluation: 10:35 - Subjective Subjective: Osmel Morse DO PGY1- Internal Medicine [employer] - OBGYN Progress Note for Dr. Ramos Patient was seen and evaluated at bedside this morning; No acute events reported overnight; Afebrile overnight Upon evaluation this morning patient complains of cough and headache/ sinus pressure. Complained of some nausea w/ excessive coughing. Cough nonproductive Denies dysuria, hematuria, worsening abd pain, sob, cp. Objective - Vital Signs/Intake and Output Vital Signs (last 24 hours): Temp Pulse Resp BP Pulse Ox 98.0 F 99 H 20 100/58 L 95 01/13/19 07:00 01/13/19 08:01 01/13/19 07:00 01/13/19 07:00 01/13/19 07:00 Intake and Output: 01/13/19 01/13/19 06:59 18:59 Intake Total 750 Balance 750 - Medications Medications: Current Medications Acetaminophen (Tylenol 325mg Tab) 650 mg PO Q6 PRN PRN Reason: Fever >100.4 F Last Admin: 01/12/19 17:35 Dose: 650 mg Albuterol (Ventolin Hfa 90 Mcg/Actuation (8 G)) 1 puff INH RQ6 PRN PRN Reason: Shortness of Breath Last Admin: 01/13/19 05:29 Dose: 1 puff Guaifenesin (Robitussin) 100 mg PO Q4H PRN PRN Reason: Cough Last Admin: 01/13/19 05:05 Dose: 100 mg Multivit/Folic Acid/Iron () 1 tab PO DAILY JADYN Last Admin: 01/13/19 09:24 Dose: 1 tab - Labs Labs: 01/13/19 07:31 01/13/19 07:31 - Constitutional Appears: Well, Non-toxic, No Acute Distress - Head Exam Head Exam: ATRAUMATIC, NORMOCEPHALIC - Eye Exam Eye Exam: EOMI, PERRL. absent: Scleral icterus - ENT Exam Additional comments: Maxillary sinus tenderness R>L - Respiratory Exam Respiratory Exam: Clear to Ausculation Bilateral, NORMAL BREATHING PATTERN - Cardiovascular Exam Cardiovascular Exam: RRR. absent: Murmur - GI/Abdominal Exam GI & Abdominal Exam: Soft. absent: Tenderness - Extremities Exam Extremities Exam: Normal Capillary Refill - Neurological Exam Neurological Exam: Alert, Awake, CN II-XII Intact, Oriented x3 - Psychiatric Exam Psychiatric exam: Normal Affect, Normal Mood - Skin Skin Exam: Dry, Intact, Normal Color, Warm Assessment and Plan - Assessment and Plan (Free Text) Assessment: 23 yo female with an IUP at 32.2 weeks admitted for presumed pyelonephritis and IV ABX on 01/11; Upon evaluation findings appear to be more consistent w/ sinusitis/ URI. Plan: Pyelonephritis vs Sinusitis / URI Management as per Primary team and ID UCX negative; BCX negative to date IV Abx as per ID at 32 Weeks Continue NST Q12 ; Good variability at this time; NST Reassuring Cont vitamins, folic acid, iron Hx Asthma w/ minimal wheezes + cough Albuterol nebs one time given today due to symptoms during exam; If refractory will defer to primary team for management c/w albuterol inhaler prn as per primary c/w antitussives as per primary Patient was seen, examined, and discussed w/ attending Dr. Rachel Morse DO PGY1 - Internal Medicine [employer]
--- NOTE | 2019-01-13 16:00 | CP.PCM.DIS ---
<Behzad Rhoades - Last Filed: 01/13/19 16:24> Provider - Provider Date of Admission: 01/11/19 18:30 Attending physician: Stephane Erickson MD Consults: 01/11/19 18:54 Infectious Disease Consult Routine Comment: Consulting Provider: Christos Carreon Consulting Physician: Christos Carreon Reason for Consult: R flank pain, possible pyleonephritis 01/11/19 19:25 Hospitalist Consult Routine Comment: Consulting Provider: Car Wang Consulting Physician: Car Wang Reason for Consult: R flank pain, r/o pyleonephritis, septic 01/12/19 15:43 Physician Consult Routine Comment: Consulting Provider: Aminata Javier Consulting Physician: Aminata Javier Reason for Consult: Continue monitoring Time Spent in preparation of Discharge (in minutes): 40 Diagnosis - Discharge Diagnosis (1) UTI (urinary tract infection) Status: Acute Comment: Will give macrobid 100 mg BID for 7 days. Inpatient treated with aztreonam Hospital Course - Lab Results Lab Results: Micro Results 01/11/19 16:55 Urine,Clean Catch Urine Culture - Final No Growth (<1,000 CFU/ML) 01/11/19 16:35 Blood-Venous Blood Culture - Preliminary NO GROWTH AFTER 24 HOURS 01/11/19 16:55 Blood-Venous Blood Culture - Preliminary NO GROWTH AFTER 24 HOURS Most Recent Lab Values WBC 9.5 K/uL (4.8-10.8) 01/13/19 07:31 RBC 3.95 Mil/uL (3.80-5.20) 01/13/19 07:31 Hgb 9.0 g/dL (11.0-16.0) L 01/13/19 07:31 Hct 27.0 % (34.0-47.0) L 01/13/19 07:31 MCV 68.3 fL (81.0-99.0) L 01/13/19 07:31 MCH 22.9 pg (27.0-31.0) L 01/13/19 07:31 MCHC 33.5 g/dL (33.0-37.0) 01/13/19 07:31 RDW 17.6 % (11.5-14.5) H 01/13/19 07:31 Plt Count 302 K/uL (130-400) 01/13/19 07:31 MPV 7.5 fL (7.2-11.7) 01/13/19 07:31 Neut % (Auto) 72.4 % (50.0-75.0) 01/13/19 07:31 Lymph % (Auto) 15.8 % (20.0-40.0) L 01/13/19 07: [place] % (Auto) 9.7 % (0.0-10.0) 01/13/19 07: Eos % (Auto) 1.7 % (0.0-4.0) 01/13/19 07: Baso % (Auto) 0.4 % (0.0-2.0) 01/13/19 07: Neut # (Auto) 6.9 K/uL (1.8-7.0) 01/13/19 07: Lymph # (Auto) 1.5 K/uL (1.0-4.3) 01/13/19 07: [place] # (Auto) 0.9 K/uL (0.0-0.8) H 01/13/19 07:31 Eos # (Auto) 0.2 K/uL (0.0-0.7) 01/13/19 07: Baso # (Auto) 0.0 K/uL (0.0-0.2) 01/13/19 07:31 Neutrophils % (Manual) 82 % (50-75) H 01/11/19 16:55 Band Neutrophils % 2 % (0-2) 01/11/19 16:55 Lymphocytes % (Manual) 8 % (20-40) L 01/11/19 16:55 Monocytes % (Manual) 8 % (0-10) 01/11/19 16:55 Platelet Estimate Normal (NORMAL) 01/11/19 16:55 Hypochromasia (manual) Slight 01/11/19 16:55 Poikilocytosis (manual Slight 01/11/19 16:55 Anisocytosis (manual) Slight 01/11/19 16:55 Microcytosis (manual) Slight 01/11/19 16:55 pO2 24 mm/Hg (30-55) L 01/11/19 17:00 VBG pH 7.39 (7.32-7.43) 01/11/19 17:00 VBG pCO2 34 mmHg (40-60) L 01/11/19 17:00 VBG HCO3 20.6 mmol/L 01/11/19 17:00 VBG Total CO2 21.6 mmol/L (22-28) L 01/11/19 17:00 VBG O2 Sat (Calc) 43.3 % (40-65) 01/11/19 17:00 VBG Base Excess -3.6 mmol/L (0.0-2.0) L 01/11/19 17:00 VBG Potassium 3.1 mmol/L (3.6-5.2) L 01/11/19 17:00 Sodium 136.0 mmol/l (132-148) 01/11/19 17:00 Chloride 107.0 mmol/L (98-107) 01/11/19 17:00 Glucose 65 mg/dl (65-105) 01/11/19 17:00 Lactate 1.7 mmol/L (0.7-2.1) 01/11/19 17:00 FiO2 21.0 % 01/11/19 17:00 Sodium 134 mmol/L (132-148) 01/13/19 07:31 Potassium 3.6 mmol/L (3.6-5.2) 01/13/19 07:31 Chloride 106 mmol/L (98-107) 01/13/19 07:31 Carbon Dioxide 24 mmol/L (22-30) 01/13/19 07:31 Anion Gap 8 (10-20) L 01/13/19 07:31 BUN 3 mg/dL (7-17) L 01/13/19 07:31 Creatinine 0.4 mg/dL (0.7-1.2) L 01/13/19 07:31 Est GFR ( Amer) > 60 01/13/19 07:31 Est GFR (Non-Af Amer) > 60 01/13/19 07:31 Random Glucose 83 mg/dL (65-105) 01/13/19 07:31 Calcium 7.9 mg/dl (8.6-10.4) L 01/13/19 07:31 Phosphorus 3.1 mg/dL (2.5-4.5) 01/12/19 07:28 Magnesium 1.4 mg/dL (1.6-2.3) L 01/12/19 07:28 Total Bilirubin 0.3 mg/dL (0.2-1.3) 01/13/19 07:31 AST 38 U/L (14-36) H D 01/13/19 07:31 ALT 11 U/L (9-52) 01/13/19 07:31 Alkaline Phosphatase 97 U/L (38-126) 01/13/19 07:31 Total Protein 5.7 g/dL (6.3-8.3) L 01/13/19 07:31 Albumin 2.9 g/dL (3.5-5.0) L 01/13/19 07:31 Globulin 2.8 gm/dL (2.2-3.9) 01/13/19 07:31 Albumin/Globulin Ratio 1.1 (1.0-2.1) 01/13/19 07:31 Procalcitonin < 0.05 NG/ML (0.19-0.49) L 01/13/19 07:31 Venous Blood Potassium 3.1 mmol/L (3.6-5.2) L 01/11/19 17:00 Urine Color Yellow (YELLOW) 01/11/19 16:55 Urine Clarity Hazy (Clear) 01/11/19 16:55 Urine pH 6.0 (5.0-8.0) 01/11/19 16:55 Ur Specific [place] 1.011 (1.003-1.030) 01/11/19 16:55 Urine Protein Negative mg/dL (NEGATIVE) 01/11/19 16:55 Urine Glucose (UA) Normal mg/dL (Normal) 01/11/19 16:55 Urine Ketones 1+ mg/dL (NEGATIVE) H 01/11/19 16:55 Urine Blood Negative (NEGATIVE) 01/11/19 16:55 Urine Nitrate Negative (NEGATIVE) 01/11/19 16:55 Urine Bilirubin Negative (NEGATIVE) 01/11/19 16:55 Urine Urobilinogen Normal mg/dL (0.2-1.0) 01/11/19 16:55 Ur Leukocyte Esterase 1+ Mal[place]/uL (Negative) H 01/11/19 16:55 Urine WBC (Auto) 7 /hpf (0-5) H 01/11/19 16:55 Urine RBC (Auto) 5 /hpf (0-3) H 01/11/19 16:55 Ur Squamous Epith Cells 6 /hpf (0-5) H 01/11/19 16:55 Urine Bacteria Mod (<OCC) H 01/11/19 16:55 Influenza Typ A,B (EIA) Negative for flu a/b (NEGATIVE) 01/13/19 14:12 - Hospital Course Hospital Course: Ms. Conti is a 23 year old at 30.2 weeks by LMP female with a PMH of asthma and sickle cell trait here today for worsening fever, chills, and R sided abdominal pain. Over the last 3 days, she has started to experience subjective fevers, chills, and a runny/stuffy nose. These are similar symptoms her 1.5 year old niece had last week. She has also been experiencing more difficulty with urination during this . She often feels like she's incompletely voiding, and has stress incontinence when she coughs or laughs. She denies burning or itching, but states that it is uncomfortable to urinate. She has a mild R sided abdominal pain that radiates to her RLQ, worst during urination. She went to see her OB yesterday and was given a 3-day Z-george of which she has only taken the first day. Her sister convinced her to come to the hospital due to her fever and persistent dry cough. There were no complications with her first . She had an increase in morning sickness during the first trimester of this , but has been otherwise uncomplicated. She has been attending near weekly appointments with her OB, Dr. Pretty. She has been keeping up with care; she has not had the flu shot this year. She was first evaluated by L&D who gave her Tylenol 650mg FL, Tylenol 650mg PO, 500mL NS bolus, and Robitussin. UA showed infection; blood and urine cultures have been sent. During hospital course, patient treated with aztreonam for UTI. Urinanaylsis indicated possible UTI, ID consulted recommended discharge with macrobid 100 mg Q12 for 7 days. Negative urine cultures. Renal ultrasound indicated mild fullness of R > L kidney. OBGYN had NST reassuring. Patient stated her URI symptoms included dry cough, with runny nose, no sinus pressure. Pt reports several family members sick at home. Likely viral infection. Above is only a summary of patient stay in the hospital. See EMR for full details. See discharge instructions provided to patient. Patient is clear for discharge per Dr. Erickson. Please follow up with your OBGYN doctor within 1 week of discharge. Please follow up withy our primary doctor within 1 week of discharge. Please continue taking your albuterol and vitamins as prescribed previously by your primary doctors. A new prescription for albuterol will be provided. Please take macrobid 100 mg, 1 tablet, twice daily for total of 7 days. Please eat plenty of yogurt during the duration of the macrobid. You may use dextromethorphan for cough medicine. This is found over the counter. If symptoms worsen or do not improve, return to your nearest emergency facility. Discharge Exam - Head Exam Head Exam: ATRAUMATIC, NORMOCEPHALIC - Eye Exam Eye Exam: EOMI, Normal appearance - ENT Exam ENT Exam: Mucous Membranes Moist - Respiratory Exam Respiratory Exam: Clear to PA & Lateral, UNREMARKABLE - Cardiovascular Exam Cardiovascular Exam: +S1, +S2 - GI/Abdominal Exam GI & Abdominal Exam: Normal Bowel Sounds, Soft, Unremarkable - Extremities Exam Additional comments: no calf tenderness, no pedal edema - Back Exam Back exam: absent: CVA tenderness (L), CVA tenderness (R) - Neurological Exam Neurological exam: Alert, Oriented x3 - Psychiatric Exam Psychiatric exam: Normal Affect, Normal Mood - Skin Skin Exam: Dry, Intact, Normal Color, Warm Discharge Plan - Discharge Medications Prescriptions: Albuterol HFA [Ventolin HFA 90 mcg/actuation (8 g)] 1 puff IH Q6H #1 inhaler Nitrofurantoin Macrocrystals [Macrobid] 100 mg PO BID #14 cap - Follow Up Plan Condition: GOOD Disposition: HOME/ ROUTINE Instructions: Urinary Tract Infection, Adult (DC), Albuterol, Nitrofurantoin Additional Instructions: Patient is clear for discharge per Dr. Erickson. Please follow up with your OBGYN doctor within 1 week of discharge. Please follow up withy our primary doctor within 1 week of discharge. Please continue taking your albuterol and vitamins as prescribed previously by your primary doctors. A new prescription for albuterol will be provided. Please take macrobid 100 mg, 1 tablet, twice daily for total of 7 days. Please eat plenty of yogurt during the duration of the macrobid. You may use dextromethorphan for cough medicine. This is found over the counter. If symptoms worsen or do not improve, return to your nearest emergency facility. <Stephane Erickson - Last Filed: 01/14/19 15:08> Provider - Provider Date of Admission: 01/11/19 18:30 Attending physician: Stephane Erickson MD Consults: 01/11/19 18:54 Infectious Disease Consult Routine Comment: Consulting Provider: Christos Carreon Consulting Physician: Christos Carreon Reason for Consult: R flank pain, possible pyleonephritis 01/11/19 19:25 Hospitalist Consult Routine Comment: Consulting Provider: Car Wang Consulting Physician: Car Wang Reason for Consult: R flank pain, r/o pyleonephritis, septic 01/12/19 15:43 Physician Consult Routine Comment: Consulting Provider: Aminata Javier Consulting Physician: Aminata Javier Reason for Consult: Continue monitoring Hospital Course - Lab Results Lab Results: Micro Results 01/11/19 16:35 Blood-Venous Blood Culture - Preliminary NO GROWTH AFTER 48 HOURS 01/11/19 16:55 Blood-Venous Blood Culture - Preliminary NO GROWTH AFTER 48 HOURS 01/11/19 16:55 Urine,Clean Catch Urine Culture - Final No Growth (<1,000 CFU/ML) Most Recent Lab Values WBC 9.5 K/uL (4.8-10.8) 01/13/19 07:31 RBC 3.95 Mil/uL (3.80-5.20) 01/13/19 07:31 Hgb 9.0 g/dL (11.0-16.0) L 01/13/19 07:31 Hct 27.0 % (34.0-47.0) L 01/13/19 07:31 MCV 68.3 fL (81.0-99.0) L 01/13/19 07:31 MCH 22.9 pg (27.0-31.0) L 01/13/19 07:31 MCHC 33.5 g/dL (33.0-37.0) 01/13/19 07:31 RDW 17.6 % (11.5-14.5) H 01/13/19 07:31 Plt Count 302 K/uL (130-400) 01/13/19 07:31 MPV 7.5 fL (7.2-11.7) 01/13/19 07:31 Neut % (Auto) 72.4 % (50.0-75.0) 01/13/19 07:31 Lymph % (Auto) 15.8 % (20.0-40.0) L 01/13/19 07:31 [place] % (Auto) 9.7 % (0.0-10.0) 01/13/19 07:31 Eos % (Auto) 1.7 % (0.0-4.0) 01/13/19 07: Baso % (Auto) 0.4 % (0.0-2.0) 01/13/19 07: Neut # (Auto) 6.9 K/uL (1.8-7.0) 01/13/19 07:31 Lymph # (Auto) 1.5 K/uL (1.0-4.3) 01/13/19 07:31 [place] # (Auto) 0.9 K/uL (0.0-0.8) H 01/13/19 07:31 Eos # (Auto) 0.2 K/uL (0.0-0.7) 01/13/19 07:31 Baso # (Auto) 0.0 K/uL (0.0-0.2) 01/13/19 07:31 Neutrophils % (Manual) 82 % (50-75) H 01/11/19 16:55 Band Neutrophils % 2 % (0-2) 01/11/19 16:55 Lymphocytes % (Manual) 8 % (20-40) L 01/11/19 16:55 Monocytes % (Manual) 8 % (0-10) 01/11/19 16:55 Platelet Estimate Normal (NORMAL) 01/11/19 16:55 Hypochromasia (manual) Slight 01/11/19 16:55 Poikilocytosis (manual Slight 01/11/19 16:55 Anisocytosis (manual) Slight 01/11/19 16:55 Microcytosis (manual) Slight 01/11/19 16:55 pO2 24 mm/Hg (30-55) L 01/11/19 17:00 VBG pH 7.39 (7.32-7.43) 01/11/19 17:00 VBG pCO2 34 mmHg (40-60) L 01/11/19 17:00 VBG HCO3 20.6 mmol/L 01/11/19 17:00 VBG Total CO2 21.6 mmol/L (22-28) L 01/11/19 17:00 VBG O2 Sat (Calc) 43.3 % (40-65) 01/11/19 17:00 VBG Base Excess -3.6 mmol/L (0.0-2.0) L 01/11/19 17:00 VBG Potassium 3.1 mmol/L (3.6-5.2) L 01/11/19 17:00 Sodium 136.0 mmol/l (132-148) 01/11/19 17:00 Chloride 107.0 mmol/L (98-107) 01/11/19 17:00 Glucose 65 mg/dl (65-105) 01/11/19 17:00 Lactate 1.7 mmol/L (0.7-2.1) 01/11/19 17:00 FiO2 21.0 % 01/11/19 17:00 Sodium 134 mmol/L (132-148) 01/13/19 07:31 Potassium 3.6 mmol/L (3.6-5.2) 01/13/19 07:31 Chloride 106 mmol/L (98-107) 01/13/19 07:31 Carbon Dioxide 24 mmol/L (22-30) 01/13/19 07:31 Anion Gap 8 (10-20) L 01/13/19 07:31 BUN 3 mg/dL (7-17) L 01/13/19 07:31 Creatinine 0.4 mg/dL (0.7-1.2) L 01/13/19 07:31 Est GFR ( Amer) > 60 01/13/19 07:31 Est GFR (Non-Af Amer) > 60 01/13/19 07:31 Random Glucose 83 mg/dL (65-105) 01/13/19 07:31 Calcium 7.9 mg/dl (8.6-10.4) L 01/13/19 07:31 Phosphorus 3.1 mg/dL (2.5-4.5) 01/12/19 07:28 Magnesium 1.4 mg/dL (1.6-2.3) L 01/12/19 07:28 Total Bilirubin 0.3 mg/dL (0.2-1.3) 01/13/19 07:31 AST 38 U/L (14-36) H D 01/13/19 07:31 ALT 11 U/L (9-52) 01/13/19 07:31 Alkaline Phosphatase 97 U/L (38-126) 01/13/19 07:31 Total Protein 5.7 g/dL (6.3-8.3) L 01/13/19 07:31 Albumin 2.9 g/dL (3.5-5.0) L 01/13/19 07:31 Globulin 2.8 gm/dL (2.2-3.9) 01/13/19 07:31 Albumin/Globulin Ratio 1.1 (1.0-2.1) 01/13/19 07:31 Procalcitonin < 0.05 NG/ML (0.19-0.49) L 01/13/19 07:31 Venous Blood Potassium 3.1 mmol/L (3.6-5.2) L 01/11/19 17:00 Urine Color Yellow (YELLOW) 01/11/19 16:55 Urine Clarity Hazy (Clear) 01/11/19 16:55 Urine pH 6.0 (5.0-8.0) 01/11/19 16:55 Ur Specific [place] 1.011 (1.003-1.030) 01/11/19 16:55 Urine Protein Negative mg/dL (NEGATIVE) 01/11/19 16:55 Urine Glucose (UA) Normal mg/dL (Normal) 01/11/19 16:55 Urine Ketones 1+ mg/dL (NEGATIVE) H 01/11/19 16:55 Urine Blood Negative (NEGATIVE) 01/11/19 16:55 Urine Nitrate Negative (NEGATIVE) 01/11/19 16:55 Urine Bilirubin Negative (NEGATIVE) 01/11/19 16:55 Urine Urobilinogen Normal mg/dL (0.2-1.0) 01/11/19 16:55 Ur Leukocyte Esterase 1+ Malou/uL (Negative) H 01/11/19 16:55 Urine WBC (Auto) 7 /hpf (0-5) H 01/11/19 16:55 Urine RBC (Auto) 5 /hpf (0-3) H 01/11/19 16:55 Ur Squamous Epith Cells 6 /hpf (0-5) H 01/11/19 16:55 Urine Bacteria Mod (<OCC) H 01/11/19 16:55 Influenza Typ A,B (EIA) Negative for flu a/b (NEGATIVE) 01/13/19 14:12 Attending/Attestation - Attestation I have personally seen and examined this patient.: Yes I have fully participated in the care of the patient.: Yes I have reviewed all pertinent clinical information, including history, physical exam and plan: Yes Notes (Text): Discussed with Dr carreon . we will discharge on Macrbid which is ok for women.
--- NOTE | 2019-01-13 16:00 | CP.PCM.HP ---
History of Present Illness - History of Present Illness History of Present Illness: cc: "I feel sick" Ms. Conti is a 23 year old at 30.2 weeks by LMP female with a PMH of asthma and sickle cell trait here today for worsening fever, chills, and R sided abdominal pain. Over the last 3 days, she has started to experience subjective fevers, chills, and a runny/stuffy nose. These are similar symptoms her 1.5 year old niece had last week. She has also been experiencing more difficulty with urination during this . She often feels like she's incompletely voiding, and has stress incontinence when she coughs or laughs. She denies burning or itching, but states that it is uncomfortable to urinate. She has a mild R sided abdominal pain that radiates to her RLQ, worst during urination. She went to see her OB yesterday and was given a 3-day Z-george of which she has only taken the first day. Her sister convinced her to come to the hospital due to her fever and persistent dry cough. There were no complications with her first . She had an increase in morning sickness during the first trimester of this , but has been otherwise uncomplicated. She has been attending near weekly appointments with her OB, Dr. Pretty. She has been keeping up with care; she has not had the flu shot this year. She was first evaluated by L&D who gave her Tylenol 650mg UT, Tylenol 650mg PO, 500mL NS bolus, and Robitussin. UA showed infection; blood and urine cultures have been sent. PMH: asthma, sickle cell trait Med: PNV, Z-geogre All: PCN - swelling, anaphylaxis PSxHx: tonsillectomy 2001 FamHx: mother - DM, breast CA@51, father - HTN, MGM - DM, breast CA@50s, MGF - DM, unknown CA SocHx: denies tobacco, alcohol, illicit drugs. Lives with child in apartment. 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 First uncomplicated, born term vaginally. Increased morning sickness this , otherwise uncomplicated. BOONE 03/20/19 by LMP 06/13/18. PMD: Dr. Valdez OB: Dr. Pretty [phone] Full Code Present on Admission - Present on Admission Any Indicators Present on Admission: No History of DVT/PE: No History of Uncontrolled Diabetes: No Urinary Catheter: No Decubitus Ulcer Present: No Review of Systems - Constitutional Constitutional: Chills, Fatigue, Fever. absent: Weakness - EENT Eyes: absent: Blurred Vision, Change in Vision, Diplopia Ears: absent: Decreased Hearing, Tinnitus, Dizziness Nose/Mouth/Throat: absent: Nasal Congestion, Nasal Discharge - Cardiovascular Cardiovascular: absent: Chest Pain, Palpitations - Respiratory Respiratory: Cough, Dyspnea. absent: Wheezing Past Patient History - Infectious Disease Hx of Infectious Diseases: None - Past Social History Smoking Status: Never Smoked Alcohol: None Drugs: Denies Home Situation {Lives}: With Family - PULMONARY Hx Asthma: Yes - HEMATOLOGICAL/ONCOLOGICAL Hx Blood Disorders: Yes - PSYCHIATRIC Hx Substance Use: No - SURGICAL HISTORY Hx Tonsillectomy: Yes - ANESTHESIA Hx Anesthesia: Yes Hx Anesthesia Reactions: No Meds Home Medications: Home Medication List Medication Instructions Recorded Confirmed Type Albuterol HFA [Ventolin HFA 90 1 puff IH Q6H #1 inhaler 01/13/19 Rx mcg/actuation (8 g)] Albuterol HFA [Ventolin HFA 90 1 puff INH RQ6 PRN inhaler 01/13/19 Rx mcg/actuation (8 g)] Nitrofurantoin Macrocrystals 100 mg PO BID #14 cap 01/13/19 Rx [Macrobid] Multivit/Folic Acid/I 1 tab PO DAILY tab 01/13/19 Rx [] Allergies/Adverse Reactions: Allergies Allergy/AdvReac Type Severity Reaction Status Date / Time Penicillins Allergy SWELLING Verified 08/01/18 13:23 terconazole Allergy RASH Verified 08/01/18 13:23 Results - Vital Signs Recent Vital Signs: Last Vital Signs Temp 98.0 F 01/13/19 07:00 Pulse 99 H 01/13/19 08:01 Resp 20 01/13/19 07:00 BP 100/58 L 01/13/19 07:00 Pulse Ox 95 01/13/19 07:00 - Labs Result Diagrams: 01/13/19 07:31 01/13/19 07:31 Labs: Laboratory Results - last 24 hr 01/13/19 01/13/19 01/13/19 07:31 07:31 07:31 WBC 9.5 RBC 3.95 Hgb 9.0 L Hct 27.0 L MCV 68.3 L MCH 22.9 L MCHC 33.5 RDW 17.6 H Plt Count 302 MPV 7.5 Neut % (Auto) 72.4 Lymph % (Auto) 15.8 L Nash % (Auto) 9.7 Eos % (Auto) 1.7 Baso % (Auto) 0.4 Neut # (Auto) 6.9 Lymph # (Auto) 1.5 Nash # (Auto) 0.9 H Eos # (Auto) 0.2 Baso # (Auto) 0.0 Sodium 134 Potassium 3.6 Chloride 106 Carbon Dioxide 24 Anion Gap 8 L BUN 3 L Creatinine 0.4 L Est GFR ( Amer) > 60 Est GFR (Non-Af Amer) > 60 Random Glucose 83 Calcium 7.9 L Total Bilirubin 0.3 AST 38 H D ALT 11 Alkaline Phosphatase 97 Total Protein 5.7 L Albumin 2.9 L Globulin 2.8 Albumin/Globulin Ratio 1.1 Procalcitonin < 0.05 L Influenza Typ A,B (EIA) 01/13/19 14:12 WBC RBC Hgb Hct MCV MCH MCHC RDW Plt Count MPV Neut % (Auto) Lymph % (Auto) Nash % (Auto) Eos % (Auto) Baso % (Auto) Neut # (Auto) Lymph # (Auto) Nash # (Auto) Eos # (Auto) Baso # (Auto) Sodium Potassium Chloride Carbon Dioxide Anion Gap BUN Creatinine Est GFR ( Amer) Est GFR (Non-Af Amer) Random Glucose Calcium Total Bilirubin AST ALT Alkaline Phosphatase Total Protein Albumin Globulin Albumin/Globulin Ratio Procalcitonin Influenza Typ A,B (EIA) Negative for flu a/b Assessment & Plan - Assessment and Plan (Free Text) Assessment: 23yo at 30.2 weeks PMH asthma, sickle cell trait admitted for R flank pain r/o pyelonephritis. Plan: R flank pain with fever possible Pyelonephritis Renal US (01/11): mild fullness of the R>L renal collecting systems. No obstr ucting calculus identified Tmax 101.3. Given Tylenol 650mg PO and 650mg UT. 500mL bolus of NS also given in OB. - Aztreonam 1gm IVPB q8 (started 01/11) - Tylenol 650mg PO q6 prn - maintenance hydration: LR@100 - f/u blood Cx - f/u urine Cx - ID consulted: Dr. Carreon - recs appreciated Patient is at 30.2 by LMP and 30.6 by third trimester US BPP (01/11): 05/11 - hold PNV in lieu of infection - call OB Dr. Pretty for records - monitor BID x 20-30 min Asthma SOB/Cough patient was given Guaifenesin/Codeine in L&D EKG showed sinus tachy @ 98 with no STTW changes - Robitussin 100mg po q4 prn - Albuterol HFA 1 puff INH rQ6 prn - f/u influenza PPx - DVT: SCDs - Diet: Reg diet - IVF: LR@100
--- NOTE | 2019-01-13 16:56 | OBADHP ---
Datetime: 01/11/2019 16:50 Membranes, Provider: Intact FHR Category Provider Fetus A: Category I Datetime: 01/11/2019 15:55 IP Chief Complaint Other: Right flank pain RLQ pain Fever Admit Comment, IP Provider: 23 yo female with an IUP at 32.2 weeks and presented with c/o o f High fevers for few hours with non-productive cough, moderate to severe Right Flank pain radiating to her RLQ of her abdomen. Admits to adequate FM and denies any pains, contractions, LOF, VB or VD. D enies any complications PMHx Denies PSHx Denies Meds PNV, Azythromycin, Allergies: PCN with swelling Social Hx denies x 3 PE as noted above A/P Maternal and Tachycardia on admission Temp 101.3 Nasal congestion but throat clean FHT's reassuring/NST Reactive No uterine activity recorded, palpated or perceived by patient Labs, Renal US and BPP ordered IV Hydration started Tylenol Rectal and po given and Temp down to 99 Continue FHT and Contractions monitoring Suspect Pyelonephritis Will admit for observation and treatment Pelvic Type - PN: Adequate Extremities - PN: Normal Abdomen - PN: Abnormal Back - PN: Abnormal Breast - PN: Not Done Lungs - PN: Normal Heart - PN: Normal Thyroid - PN: Normal Neurologic - PN: Normal HEENT - PN: Normal General - PN: Normal Presentation-Admit: Vertex FHR - Baseline A Provider: 130 Comments, ACOG Physical Exam: Moderate Right flank pain radiating to her RLQ High fever since this AM with non-productive cough Heart RRR Lungs CTA Abdomen soft and non-tender Throat WNL Gestation - Est Wks by US: 30.2 IP Hx Assessment: NO PNC records available IP Chief Complaint: Signs/symptoms UTI; Illness; Maternal discomfort; evaluation NICHD Variability Prov Fetus A: Moderate 6-25bpm NICHD Accel Fetus A IP Provider: 10X10 NICHD Decel Fetus A IP Provider: None Genitourinary Exam: Normal DTRs - PN: Normal IP Adm Impression: , intrauterine ; No Active Labor; Intact Membranes IP Admit Plan: Admit to unit
--- NOTE | 2019-01-13 16:57 | OBPN ---
Datetime: 01/11/2019 16:50 IP Progress Impression Other: Pyelonephritis IP Progress Impression: Reactive non-stress test IP Progress Plan: Continue present management; Antibiotic therapy Membranes, Provider: Intact IP Progress Note Comment: Pt admits to feeling somewhat better since Temperature down and IV Hydrati on Heart Rate continues reassuring and no uterine activity BPP 8/8 and Renal US with significant fullnes of the right renal collecting system ID consulted for Antibiotic treatment since serious PCn allergy and he recommended Aztreonan that will have to be given in Telemetry Internal Medicine contracted to transfer the patient to Medicine Service and Car Christine the transfer Resident contacted and transfer in progress Pt remained stable and fully aware of POC and agreed FHR Category Provider Fetus A: Category I Datetime: 01/11/2019 15:55 FHR - Baseline A Provider: 130 Gestation - Est Wks by US: 30.2 Presentation-Admit: Vertex NICHD Accel Fetus A IP Provider: 10X10 NICHD Variability Prov Fetus A: Moderate 6-25bpm NICHD Decel Fetus A IP Provider: None
[2019-01-13 20:55] VITALS: PULSE 96; RESP 16; TEMP 98.2
[2019-01-16 18:47] LABS: INFLUENZA TYPE A AB <1:8 titer (<1:8); INFLUENZA TYPE B AB <1:8 titer (<1:8)
== END 2019-01-13 16:54 | disposition home or self-care (01) | DRG 373 ==
LOC: C.EROB 15:40 → C.4D 18:30 → C.6T 21:06
PROVIDERS: ADMIT Internal Medicine; ATTEND Internal Medicine
DX: O23.43 Unspecified infection of urinary tract in pregnancy, third trimester (principal); O21.0 Mild hyperemesis gravidarum; J45.909 Unspecified asthma, uncomplicated; D57.3 Sickle-cell trait; O99.513 Diseases of the respiratory system complicating pregnancy, third trimester; Z88.0 Allergy status to penicillin